=== PATIENT | male | born 1945 | race Caucasian/White ===

== ENCOUNTER 2018-12-20 09:08 | Emergency (ER) | payer MEDICARE, OTHER ==
[2018-12-20] MEDS ORDERED: Tranexamic Acid 1,000 MG/10 ML SDV ONE ×2 (09:17→09:21)
--- NOTE | 2018-12-20 09:24 | ED ---
Skin Complaint - HPI Summary HPI Summary: Patient is a 73 y/o male who presents to the ED c/o bleeding. He had a pacemaker placed in his left chest at [place] 1 week ago. Patient was here 4 days ago for bleeding from the surgical site s/p fall. He was found to have a hematoma in his surgical site. As per , it has been seeping intermittently for the past 4 days. At 8:00 this morning the bleeding became profuse. Patient is on Xarelto. PMHx AFib, CAD, HTN, and HLD. - History of Current Complaint Stated Complaint: BLEEDING FROM WOUND FROM SURGERY PER PT Hx Obtained From: Patient, Family/Research Chef - Onset/Duration: Started Days Ago - 4, Worse Since Timing: Intermittent Current Severity: None Pain Intensity: 0 Pain Scale Used: 0-10 Numeric Skin Location: Chest - left Aggravating Symptom(s): Nothing Alleviating Symptom(s): Nothing Related History: Other: - pacemaker placed 1 week ago - Allergy/Home Medications Allergies/Adverse Reactions: Allergies Allergy/AdvReac Type Severity Reaction Status Date / Time ferrous sulfate Allergy Hives Verified 12/16/18 18:02 PMH/Surg Hx/FS Hx/Imm Hx Endocrine/Hematology History: Denies: Hx Diabetes, Hx Anemia Cardiovascular History: Reports: Hx Atrial Fibrillation, Hx Coronary Artery Disease - CHOLESTEROL CONTROL WITH SIMVASTATIN, Hx Hypertension - CONTROL WITH MEDS, Hx Pacemaker/ICD, Hx Valvular Heart Disease - AORTIC VALVE REPLACED, Other Cardiovascular Problems/Disorders - CHOLESTEROL CONTROL WITH MED Respiratory History: Reports: Hx Sleep Apnea - DOES NOT USE CPAP Denies: Other Respiratory Problems/Disorders GI History: Denies: Hx Jaundice, Other GI Disorders History: Reports: Other Problems/Disorders - PROSTATECTOMY Musculoskeletal History: Reports: Hx Arthritis - GENERALIZED MOSTLY KNEES AND FEET, Hx Back Problems, Other Musculoskeletal History - LOW BACK PAIN Sensory History: Reports: Hx Contacts or Glasses - READING GLASSES, Hx Hearing Aid - BILATERAL, Hx Hearing Problem Opthamlomology History: Reports: Hx Contacts or Glasses - READING GLASSES Neurological History: Reports: Other Neuro Impairments/Disorders - pain clinic pt Psychiatric History: Reports: Hx Anxiety - CONTROL WITH MEDS, Hx Depression Denies: Hx Panic Disorder - Cancer History Cancer Type, Location and Year: Prostate 2004. hodgkins disease Hx Chemotherapy: Yes - IN THE PAST AND RADIATION Hx Radiation Therapy: Yes - [facility] - Surgical History Surgery Procedure, Year, and Place: 1994 AORTIC VALVE REPLACEMENT, [facility]. 2000 [place]IL[place] [facility] [place]IG[place]STR[facility] [place]PAIR, [facility]. 2004 ROBOTIC RADICAL PROSTATECTOMY, [facility]. 2010 OPEN RIGHT INGUINAL HERNIA [place]PAIR, [facility] [place]. 2014 LUMBAR LAMINECTOMY, [facility] [place]. 05/2016 RIGHT [facility] pacemaker 11/2018 Hx Anesthesia Reactions: No Infectious Disease History: No Infectious Disease History: Denies: Traveled Outside the [place] in Last 30 Days - Family History Known Family History: Negative: Diabetes - Social History Alcohol Use: Daily Alcohol Amount: couple of drinks per day Hx Substance Use: No Substance Use Type: Reports: None Hx Tobacco Use: Yes Smoking Status (MU): Former Smoker Type: Cigarettes Have You Smoked in the Last Year: No Review of Systems Negative: Fever Positive: Other - bleeding from surgical site left chest All Other Systems Reviewed And Are Negative: Yes Physical Exam - Summary Physical Exam Summary: Appearance: Well appearing, no pain distress Skin: warm, dry, reflects adequate perfusion, active bleeding from stapled pacemaker surgical site in left chest Head/face: normal Eyes: EOMI, TORREY ENT: mucous membranes moist Neck: supple, non-tender Respiratory: CTA, breath sounds present Cardiovascular: RRR, pulses symmetrical Abdomen: non-tender, soft Bowel Sounds: present Musculoskeletal: normal, strength/ROM intact Neuro: normal, sensory motor intact, A&Ox3 Triage Information Reviewed: Yes Vital Signs On Initial Exam: Initial Vitals Temp Pulse Resp BP Pulse Ox 98.4 F 79 16 172/98 100 12/20/18 09:11 12/20/18 09:11 12/20/18 09:11 12/20/18 09:11 12/20/18 09:11 Vital Signs Reviewed: Yes Procedures - Procedure Summary Procedure Summary: Bleeding management: Patient with significant amount of bleeding from the pacemaker pocket in the left chest. There is a large clot underneath the dressing above the skin. This was removed. Another large amount of clot was protruding from an opening or dehiscence in the surgical site. This was squeezed out and streaming red blood persisted from the surgical wound. 500 mg of TXA was injected locally into the pocket which seemed to slow the blood somewhat. Patient received 1 g IV TXA followed by 1 g drip over an hour. Pressure was held for quite some time and a pressure dressing was applied. The bleeding slowed but did not stop. He tolerated this well without complication. Complication. Diagnostics - Vital Signs Vital Signs Temp Pulse Resp BP Pulse Ox 12/20/18 09:11 98.4 F 79 16 172/98 100 - Laboratory Result Diagrams: 12/20/18 09:25 12/20/18 09:25 Lab Statement: Any lab studies that have been ordered have been reviewed, and results considered in the medical decision making process. - EKG 9:42 Cardiac Rate: Other Rate - Paced rhythm - 74 bpm EKG Rhythm: Sinus Rhythm ST Segment: Non-Specific Summary of EKG Findings: Nl axis Course/Dx - Course Course Of Treatment: Nurse's notes reviewed. Patient on oral anticoagulant without reversal agent presents with active bleeding from pacemaker pocket surgical site. Local/topical TXA and IV TXA was used to try to control the bleeding as well as direct pressure and pressure dressing. This has slowed the bleeding but not stopped it. We're able to speak to the cardiothoracic surgeon at [place] who will see him in the ER there for likely surgical management. Patient's hemoglobin and blood pressure stable. We have decided against for factor PCC at this time. He'll be transferred emergently direct to the ER to accepting physician Dr. Burton. - Differential Diagnoses - Skin Complaint Differential Diagnoses: Other - Adverse effect of anticoagulant, venous bleeding from great vessel, arterial bleeding from pocket - Diagnoses Provider Diagnoses: Adverse effect of anticoagulant, Post-operative hemorrhage, Acute post- hemorrhagic anemia - Physician Notifications Discussed Care Of Patient With: Cheyenne Nowak Time Discussed With Above Provider: 09:16 Instructed by Provider To: Other - Dr. Nowak will come see the patient in the ED. At 9:28 she arrived to the ED and she is arranging for his transfer to [place]. At 10:[address] Pinto at [place] who accepts the patient for admission, however the patient must go to their ER first. Dr. Burton from the ER accepts patient. - Critical Care Time Critical Care Time: 30-74 min - Critical care time is exclusive of separately billable procedures Discharge - Sign-Out/Discharge Documenting (check all that apply): Patient Departure - Transfer Patient Received Moderate/Deep Sedation with Procedure: No - Discharge Plan Condition: Fair Disposition: TRANS HIGHER LVL OF CARE FAC Referrals: Yung Reynolds MD [Primary Care Provider] - - Billing Disposition and Condition Condition: FAIR Disposition: Trans Higher Lvl of Care Fac - Attestation Statements Document Initiated by Izabella: Yes Documenting Scribe: Emma Lundberg Provider For Whom Izabella is Documenting (Include Credential): Musa Lugo MD Scribe Attestation: Emma Hernandez, scribed for Musa Luog MD on 12/20/18 at 1027. Scribe Documentation Reviewed: Yes Provider Attestation: The documentation as recorded by the Emma cuadra accurately reflects the service I personally performed and the decisions made by , Musa Lugo MD Status of Scribstephan Document: Viewed
[2018-12-20] MEDS ORDERED: Tranexamic Acid 1,000 MG/10 ML SDV IV ONE (09:30)
[2018-12-20] MEDS ORDERED: Tranexamic Acid 1,000 MG/10 ML SDV TOPICAL ONE (09:30)
[2018-12-20] MEDS ORDERED: Tranexamic Acid 1,000 MG/10 ML 1,000 MG in NS 0.9% 50 ML* 50 ML IV ONE (09:47)
[2018-12-20 09:59] LABS: ABS Basophils 0 10^3/ul (0-0.2); ABS Eosinophils 0.5 10^3/ul (0-0.6); ABS Lymphocytes 0.9 10^3/ul (1.0-4.8); ABS Monocytes 0.9 10^3/ul (0-0.8); ABS Neutrophils 5.6 10^3/ul (1.5-7.7); ABS Nucleated RBC 0 10^3/ul; Eosinophil % 6.6 %; Hematocrit 34 % (42-52); Hemoglobin 11.4 g/dl (14.0-18.0); Lymphocyte % 11.3 %; Mean Corpuscular HGB Conc 34 g/dl (31-36); Mean Corpuscular Hemoglobin 32 pg (27-31); Mean Corpuscular Volume 93 fL (80-94); Mean Platelet Volume 8.9 fL (7.4-10.4); Nucleated Red Blood Cells % 0; Platelet Count 163 10^3/ul (150-450); Red Cell Distribution Width 13 % (10.5-15)
[2018-12-20] MEDS ORDERED: ceFAZolin 1 GM ADVAN(*) 1 GM in NS 0.9% 50 ML* 50 ML IVPB ONE (10:00)
[2018-12-20 10:19] LABS: BUN/Creatinine Ratio 24.3 (8-20); Calcium 9.2 mg/dL (8.6-10.3); EGFR African American 62.5 (>60); EGFR Non-African American 51.7 (>60); Potassium 3.9 mmol/L (3.5-5.0)
[2018-12-20 10:21] VITALS: BP 156/79
--- NOTE | 2018-12-20 11:02 | CONS ---
CC: Dr. Yung Reynolds; Dr. Adi Bustillo CARDIOLOGY CONSULTATION DATE OF CONSULTATION: 12/20/2018. REASON FOR CONSULTATION: Bleeding from pacer site. HISTORY OF PRESENT ILLNESS: Mr. Israel is a 73-year-old gentleman who is present with his . They presented to the emergency department because of bleeding at the incision site of a pacemaker. The patient tells me on Tuesday he underwent pulmonary vein isolation (A-fib ablation) and then underwent the pacemaker lead revision and generator change. His Xarelto was held prior to the procedure and resumed on , the day he was discharged. They state he had some mild bleeding on Tuesday, but it has progressed and today was brisk, so they presented back to the ED. PAST MEDICAL HISTORY: 1. Paroxysmal atrial fibrillation. 2. Pacemaker implantation. 3. Hypertension. 4. Anxiety. 5. Thyroid nodule (Dr. Wills). 6. Low back pain (Dr. Brown). 7. Gout. 8. Prostate cancer. 9. Aortic valve replacement 1995 (probable bicuspid aortic valve, AVR in [facility], cadaveric valve). 10. Sleep apnea. PAST SURGICAL HISTORY: 1. Aortic valve replacement 1995. 2. Robotic prostatectomy 2004. 3. Inguinal hernia repair. 4. Palatoplasty for sleep apnea. MEDICATIONS: Outpatient medications were uncertain, but included: 1. Xarelto 20 mg a day. 2. Simvastatin 20 mg a day. 3. Paxil 10 mg a day. 4. Lisinopril 10 mg a day. 5. Tylenol prn. 6. Protonix 40 mg a day. 7. Lasix prn. Inpatient medications the patient has received: 1. Normal saline. 2. Kefzol 1 gm. 3. Tranexamic Acid 1 gm infusion and topical 500 mg. 4. TNX 10 ml twice. ALLERGIES: ALLERGIC OR INTOLERANT TO IRON. FAMILY HISTORY: Significant for his mother having thyroid disease. SOCIAL HISTORY: Distant smoker, two glasses of wine a day, is a wildlife research marketing operations manager for the [employer]. REVIEW OF SYSTEMS: Negative for any fevers, chills, sweats. No recent activity that the patient or his could identify that would have lead to initiate the bleeding and no activity this morning. The patient feels a little bit tired, he says as if he has lost some blood, and as above, he has had a pumping bleed from the incision since Tuesday. Home blood pressures have been 140s systolic per . PHYSICAL EXAM: General appearance: Fit-appearing, older gentleman, lying on a gurney, appearing comfortable. Dried blood covering his chest on the left side. Vital Signs: The patient is 5'10", weighs 185 pounds with a BMI of 26.5. Vitals on arrival to the emergency room showed blood pressure of 172/98, pulse is 79, respiratory rate is 16, oxygen saturation is 100 percent. He is afebrile. Telemetry confirms normal sinus rhythm. Current blood pressure is 138 /70. Psychologic: Pleasant and cooperative. Neurologic: Awake, alert, and oriented to person, place, and time. Grossly normal sensory motor function of the upper and lower extremities based on examination in the bed. Skin: Warm and dry. Incision in the left subclavian fossa examined personally. There is a prominent hematoma, and no evidence of an infection, but he does have a brisk pumping bleeding with bright blood from the medial portion of the incision. The ER has been holding direct pressure for over half an hour and it continued to bleed briskly. Several soaked ABD's and packs of 4x4's at bedside. Neck: Without appreciably increased JVP. Lungs: Breath sounds clear laterally and anteriorly. Coronary: S1, S2, regular. Abdomen: Flat, active bowel sounds and soft. Lower extremities: Warm and free of edema. DIAGNOSTIC STUDIES/LAB DATA: No labs available. No imaging studies done. I do not have pacemaker reports from [place] to review. IN SUMMARY: Mr. Israel is a 73-year-old gentleman with a history of paroxysmal A- fib with a pacemaker that required lead revision and he is not one week status post lead revision, generator change, and pulmonary vein isolation (A-fib ablation) placed back on Xarelto and then developed bleeding on Tuesday. Exam here suggests either an arterial bleed in the incision that is refractory to direct pressure in the setting of Xarelto use or possibly bleeding from the superior vena cava (I doubt the latter due to the color of the blood and pumping). There is additionally a hematoma. The incision is not optimally opposed in the region of the bleeding and this additionally poses an infection risk and material used in the ED for direct pressure included ABD's and 4 x 4's that were sterile and applied with clean technique, but it was not completely sterile. In addition to the reversing agents and direct pressure provided in the emergency room, I have recommended the patient undergo transfer back to the implanting physician and I personally discussed this with Dr. Bustillo who has agreed to accept the patient. Please note that I did not have updated medical records for review and updated medication list may be in error, and I do not have full details of his recent implant and procedures. [id number]/[facility] #: [id number] [facility]
== END 2018-12-20 11:00 | disposition short-term general hospital (02) ==
LOC: ED 09:08
DX: T45.515A Adverse effect of anticoagulants, initial encounter (principal); I97.618 Postprocedural hemorrhage of a circulatory system organ or structure following other circulatory system procedure; D62 Acute posthemorrhagic anemia; Y92.9 Unspecified place or not applicable; I25.10 Atherosclerotic heart disease of native coronary artery without angina pectoris; I10 Essential (primary) hypertension; I48.91 Unspecified atrial fibrillation; Z79.01 Long term (current) use of anticoagulants; E78.5 Hyperlipidemia, unspecified; F41.9 Anxiety disorder, unspecified; Z95.2 Presence of prosthetic heart valve; Z95.810 Presence of automatic (implantable) cardiac defibrillator; Z96.651 Presence of right artificial knee joint; Z85.46 Personal history of malignant neoplasm of prostate; Z88.8 Allergy status to other drugs, medicaments and biological substances; Z87.891 Personal history of nicotine dependence
CPT/HCPCS: 36415; 80048; 85025; 93005; 96365; 99283; J0690

== ENCOUNTER 2019-08-22 09:02 | Inpatient (IN) | payer MEDICARE, OTHER ==
--- OUTSIDE RECORDS SUMMARY | 2019-08-22 09:12 | XMS REPORT | Summary of Care ---
:1945 Author Organization [facility] Address [address] [facility] [place] [address] Care Team Providers Name Role Phone Yung Reynolds MD Primary Care Provider Reason for Referral MRI/CAT/PET Scan (Routine) Status Reason Specialty Diagnoses / Procedures Referred By Contact Referred To Contact Closed Diagnoses T-cell lymphoma (HCC) Dionte Camejo MD Robert Packer Procedures PET CT SKULL TO MID THIGH INITIAL TREATMENT 1 [facility] [place] [address] [facility] [place] [address] Phone: [phone] Reason for Visit MRI/CAT/PET Scan (Routine) Status Reason Specialty Diagnoses / Procedures Referred By Contact Referred To Contact Closed Diagnoses T-cell lymphoma (HCC) Dionte Camejo MD Robert Packer Procedures PET CT SKULL TO MID THIGH INITIAL TREATMENT 1 [facility] [place] [address] [facility] [place] [address] Phone: [phone] Encounter Details Date Type Department Care Team Description 07/23/2019 Hospital Encounter [facility] PET CT Outpatient 1 [facility] [place] [address] Allergies No Known Allergiesdocumented as of this encounter (statuses as of 07/25/2019) Medications Medication Sig Dispensed Refills Start Date End Date Status paroxetine (PAXIL) 10 Take 10 mg by 0 Active MG Oral Tab mouth EVERY BEDTIME. simvastatin (ZOCOR) 10 Take 10 mg by 0 Active MG Oral Tab mouth EVERY BEDTIME. lisinopril (PRINIVIL, Take 1 Tab by 60 Tab 11 10/20/2018 Active ZESTRIL) 10 MG Oral Tab mouth TWICE DAILY. Additional information Patient taking differently: 5 mg Oral DAILY, Reported on 07/04/2019 8:39 AM rivaroxaban (XARELTO) 20 MG Take 1 Tab by mouth 90 Tab 3 03/16/2019 Active Oral Tab DAILY. Do not resume until advised furosemide (LASIX) 40 MG Oral Take 1 Tab by mouth 30 Tab 11 03/28/2019 Active Tab DAILY NEEDED (bloating, leg swelling). acetaminophen (TYLENOL) 500 MG Take 2 Tabs by mouth 60 Tab 0 04/11/2019 Active Oral Tab EVERY EIGHT HOURS. documented as of this encounter (statuses as of 07/25/2019) Active Problems Problem Noted Date Cervical lymphadenopathy 06/22/2019 Overview: Added automatically from request for surgery [id number] H/O total hip arthroplasty, right 05/04/2019 Interstitial pulmonary disease 04/18/2019 Pain in joint involving right pelvic region and thigh 03/15/2019 Primary osteoarthritis of right hip 03/15/2019 Nonhealing surgical wound, subsequent encounter 01/10/2019 Pacemaker pocket hematoma, subsequent encounter 12/20/2018 Pacemaker lead malfunction 07/28/2018 SOB (shortness of breath) 07/07/2018 Hemoptysis 07/06/2018 Cough 04/13/2018 Pleurisy 04/13/2018 Pacemaker-dependent due to quileute cardiac rhythm insufficient to support 04/13 life Atrial fibrillation, persistent 03/10/2018 Cardiac pacemaker in situ 03/07/2018 Paroxysmal atrial fibrillation 03/07/2018 Sinus node dysfunction 01/18/2018 Atrial flutter 01/13/2018 Essential hypertension 01/13/2018 ASHD (arteriosclerotic heart disease) 01/13/2018 S/P aortic valve replacement 01/13/2018 Hx of CABG 01/13/2018 Left knee pain 09/17/2016 Primary osteoarthritis of right knee 05/14/2016 documented as of this encounter (statuses as of 07/25/2019) Immunizations Name Administration Dates Next Due Depo Medrol (40mg) 07/30/2016 Depo Medrol (80mg) 07/23/2016 documented as of this encounter Social History Tobacco Use Types Packs/Day Years Used Date Former Smoker Cigarettes Smokeless Tobacco: Never Used Alcohol Use Drinks/Week oz/Week Comments Yes 7 Standard drinks or equivalent 7.0 1-2 drinks daily, varies Sex Assigned at Date Recorded Not on file Job Start Date Occupation Industry Not on file Not on file Not on file Travel History Travel Start Travel End No recent travel history available. documented as of this encounter Last Filed Vital Signs Not on filedocumented in this encounter Plan of Treatment Date Type Specialty Care Team Description 07/26/2019 Office Visit Hematology and Oncology Jase Johnson MD [address] [address] 08/10/2019 [facility] 09/18/2019 Orders Only Cardiology 09/18/2019 Office Visit Cardiology Giselle Roland CRNP [address] [place] [address] [phone] 12/07/2019 [facility] 04/04/2020 [facility] Name Type Priority Associated Diagnoses Date/Time PET CT SKULL TO MID Imaging Routine T-cell lymphoma (HCC) 07/23/2019 4:21 PM EDT THIGH INITIAL TREATMENT Name Type Priority Associated Diagnoses Order Schedule PET CT SKULL TO MID Imaging Routine T-cell lymphoma (HCC) 1 Occurrences starting THIGH INITIAL 07/23/2019 until TREATMENT 07/23/2019 Health Maintenance Due Date Last Done Comments MEDICARE ANNUAL WELLNESS VISIT 1945 DEPRESSION SCREENING 1959 HIV SCREENING 1962 LIPID DISORDER SCREENING 1965 COLONOSCOPY SCREENING 1997 ZOSTER IMMUNIZATION SERIES (1 of 1997 2) AAA SCREENING/SURVEILLANCE 01/02/2012 FALL RISK ASSESSMENT 01/02/2012 PNEUMOCOCCAL 65+YRS (1 of 2 - 01/02/2012 PCV13) INFLUENZA VACCINE (#1) 2019 HEPATITIS C SCREENING Completed 01/16/2018 HPV IMMUNIZATION SERIES Aged Out No longer eligible based on patient's age to complete this topic MENINGOCOCCAL VACCINE IMM Aged Out No longer eligible based on patient's age to complete this topic documented as of this encounter Implants Implanted Type Area Bull Bucker Device Shelf Model / Identifier Expiration Serial / Lot Date Smart Set Bone Cement W/ Gentimy - [id number] Right: DEPUY [id number] / Implanted: Qty: 1 on 06/07/2016 by Cooper Galvez MD at [facility] Knee / [id number] Smart Set Cement - [id number] Right: DEPUY [id number] / Implanted: Qty: 1 on 06/07/2016 by Cooper Galvez MD at [facility] Knee / [id number] Persona Tibial Stem 5 Deg Sz H R - [id number] Right: HOLLIE MCDONNELL 42- [id number] / Implanted: Qty: 1 on 06/07/2016 by Cooper Galvez MD at [facility] Knee ASSOC / [id number] Persona Femur Ps Std Sz11 R - [id number] Right: HOLLIE MCDONNELL [id number] / Implanted: Qty: 1 on 06/07/2016 by Cooper Galvez MD at [facility] Knee ASSOC / [id number] Art Surface Ps 10mm R 10-12gh - [id number] Right: HOLLIE MCDONNELL 2023 [id number] / Implanted: Qty: 1 on 06/07/2016 by Cooper Galvez MD at [facility] Knee ASSOC / [id number] Assurity Mri [id number] Generator - [id number] Left: [employer]NA [id number] / Implanted: Qty: 1 on 01/13/2018 by Adi Bustillo MD at [facility] Chest [employer] [id number] / Lead, Tendril Mri [id number] - [id number] Left: ST. GEOVANNA [id number] / Implanted: Qty: 1 on 01/13/2018 by Adi Bustillo MD at [facility] Chest [employer] [id number] / Select Secure Lead 3830-69cm - [id number] Left: [employer] 3830- 69CM / Implanted: Qty: 1 on 01/13/2018 by Adi Bustillo MD at [facility] Chest / Optisense Lead - [id number] ST[employer] GEOV[place]NA / Implanted: Qty: 1 on 06/30/2018 by Adi Bustillo MD at [facility] MEDICAL, INC[employer] [id number] / 3830-59 Cm [employer] / Implanted: Qty: 1 on 12/13/2018 by Adi Bustillo MD at [facility] [id number] / Taperloc Complete Fem Stem - So Sz 15 - [id number] Right: [employer]LLIE [employer] 10/16/2027 [id number] / Implanted: Qty: 1 on 04/09/2019 by Cooper Galvez MD at [facility] Hip / [id number] Regenerex/Ringloc Ltd Hole Cup Size 58 - [id number] Right: [employer]IE [employer] 04/29/2026 [id number] / Implanted: Qty: 1 on 04/09/2019 by Cooper Galvez MD at [facility] Hip / [id number] Dual Mobility Acetabular Liner 46 G - [id number] Right: HOLLIE SATHYA 02/09/2029 [id number] / Implanted: Qty: 1 on 04/09/2019 by Cooper Galvez MD at [facility] Hip ASSOC / [id number] Biolox Ceramic Head Size 28 - [id number] Right: [employer]IE [employer] 2028 [id number] / Implanted: Qty: 1 on 04/09/2019 by Cooper Galvez MD at [facility] Hip / [id number] Ceramic Option Taper Sleeve Size Std - [id number] Right: [employer] 11/18/2027 [id number] / Implanted: Qty: 1 on 04/09/2019 by Cooper Galvez MD at [facility] Hip / [id number] Active Articulation Bearing 46mm - [id number] Right: HOLLIE SATHYA 03/05/2024 [id number] / Implanted: Qty: 1 on 04/09/2019 by Cooper Galvez MD at [facility] Hip ASSOC / [id number] documented as of this encounter Results Not on filedocumented in this encounter Visit Diagnoses Diagnosis T-cell lymphoma (HCC) Mycosis fungoides, unspecified site, extranodal and solid organ sites documented in this encounter Insurance Payer Benefit Plan / Subscriber ID Effective Dates Phone Address Type Group MEDICARE MEDICARE PART A & xxxxxxxxxxx 2011-Present Medicare B [facility] xxxxxxxx 2016-Present [employer] Guarantor Name Account Type Relation to Date of Phone Billing Address Patient Tom Israel Personal/Family 1945 [address] (Home) [facility] [phone] [place], [place] ([place]) [id number] documented as of this encounter Advance Directives Code Status Date Activated Date Inactivated Comments Full Code 04/09/2019 2:14 PM 07/09/2019 6:10 AM Does the patient have decision making capacity? Yes Order was discussed with: Patient I discussed all options and patient/surrogate requested and agreed to: Full Code Full Code 12/20/2018 12:42 PM 12/22/2018 1:40 PM Does the patient have decision making capacity? Yes Order was discussed with: Patient I discussed all options and patient/surrogate requested and agreed to: Full Code Full Code 07/08/2018 11:15 AM 07/11/2018 4:06 PM Does patient have decision making capacity? yes Order discussed with: Patient I discussed all options and patient/surrogate requested and agreed to: Full Code
--- OUTSIDE RECORDS SUMMARY | 2019-08-22 09:12 | XMS REPORT | Summary of Care ---
:1945 Author Organization [facility] Address [address] [facility] [place] [address] Care Team Providers Name Role Phone Yung Reynolds MD Primary Care Provider Reason for Visit Auth/Cert Status Reason Specialty Diagnoses / Procedures Referred By Contact Referred To Contact Encounter Details Date Type Department Care Team Description 07/09/2019 Hospital Encounter [facility] Dionte Camejo MD Short Procedure 1 [facility] [address] [facility] [place] [address] [place] [address] [phone] Allergies No Known Allergiesdocumented as of this encounter (statuses as of 07/10/2019) Medications Medication Sig Dispensed Refills Start Date [...] Reported on 07/04/2019 8:39 AM rivaroxaban (XARELTO) Take 1 Tab by 90 Tab 3 03/16/2019 Active 20 MG Oral Tab mouth DAILY. Do not resume until advised furosemide (LASIX) 40 Take 1 Tab by 30 Tab 11 03/28/2019 Active MG Oral Tab mouth DAILY NEEDED (bloating, leg swelling). acetaminophen Take 2 Tabs by 60 Tab 0 04/11/2019 Active (TYLENOL) 500 MG Oral mouth EVERY Tab EIGHT HOURS. ferrous gluconate 324 Take 324 mg by 30 Tab 0 04/12/2019 09/23/20 Discontinued (38 Fe) MG Oral Tab mouth DAILY. 19 (Patient stopped the medication) gabapentin Take 1 Cap by 5 Cap 0 04/11/2019 07/04/20 Discontinued (NEURONTIN) 300 MG mouth EVERY 19 Oral Cap BEDTIME. documented as of this encounter (statuses as of 07/10/2019) Active Problems Problem Noted Date Cervical lymphadenopathy 06/22/2019 Overview: Added automatically from request for surgery [id number] H/O total hip arthroplasty, right 05/04/2019 Interstitial pulmonary disease 04/18/2019 Pain in joint involving right pelvic region and thigh 03/15/2019 Primary osteoarthritis of right hip 03/15/2019 Nonhealing surgical wound, subsequent encounter 01/10/2019 Pacemaker pocket hematoma, subsequent encounter 12/20/2018 Pacemaker lead malfunction 07/28/2018 SOB (shortness of breath) 07/07/2018 Hemoptysis 07/06/2018 Cough 04/13/2018 Pleurisy 04/13/2018 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 04/13 life Atrial fibrillation, persistent 03/10/2018 Cardiac pacemaker in situ 03/07/2018 Paroxysmal atrial fibrillation 03/07/2018 Sinus node dysfunction 01/18/2018 Atrial flutter 01/13/2018 Essential hypertension 01/13/2018 ASHD (arteriosclerotic heart disease) 01/13/2018 S/P aortic valve replacement 01/13/2018 Hx of CABG 01/13/2018 Left knee pain 09/17/2016 Primary osteoarthritis of right knee 05/14/2016 documented as of this encounter (statuses as of 07/10/2019) Immunizations Name Administration Dates Next Due Depo [...] of this encounter Last Filed Vital Signs Vital Sign Reading Time Taken Comments Blood Pressure 121/55 07/09/2019 9:40 AM EDT Pulse 69 07/09/2019 9:40 AM EDT Temperature 36.4 07/09/2019 9:40 AM EDT C (97.6 F) Respiratory Rate 19 07/09/2019 9:40 AM EDT Oxygen Saturation 93% 07/09/2019 9:40 AM EDT Inhaled Oxygen Concentration - - Weight 83.5 kg (184 lb) 07/09/2019 6:54 AM EDT Height 177.8 cm (5' 10") 07/09/2019 6:54 AM EDT Body Mass Index 26.4 07/09/2019 6:54 AM EDT documented in this encounter Discharge Summaries Geena Cuevas MD - 07/09/2019 8:58 AM EDTGUTHRIE SP/OP DISCHARGE NOTE [address] [address] PATIENT: Tom Israel SURGEON: Primary: Dionte Camejo MD Resident - Assisting: Geena Cuevas MD ASSISTING: : 1945 DATE OF SURGERY: 07/09/2019 Procedure:Right Cervical Node BiopsY (Right ) Principle Diagnosis: Cervical lymphadenopathy Associated Condition(s): Same as pre-op, unless otherwise indicated Mental Status: Same as pre-op, unless otherwise indicated. Condition: Stable, unless otherwise indicated Disposition of Care: Discharge to home. Appointment with/ or Follow-up with Danika Ugalde in General Surgery clinic in 1 week. No orders of the defined types were placed in this encounter. Other Comments:none Author: Geena Cuevas MD 07/09/2019 documented in this encounter Discharge Instructions InstructionsGeena Cuevas MD - 07/09/2019Provider's Instructions Reason for Admission or Diagnosis:Cervical lymphadenopathy, Lymphadenopathy Activity/Restrictions: Activity as tolerated. Exercise and walk daily. Take tylenol over the counter as needed for pain (do not exceed 4000 mg acetaminophen in total per day). Skin/Wound Care: Keep incision clean and dry. Observe for redness, swelling, or drainage. Remove the big bandage the day after tomorrow. Please do not remove the white strips. They should stay on your incision and will fall off on their own in 2 weeks. It is okay to begin taking normal showers starting the day after discharge. Don 't get the dressing wet. Once you remove the big bandage, you can let soap and water rinse over wounds and dry carefully.No scrubbing at the wounds. No soaking baths or swimming for 2 weeks after surgery. Use ice packs and heat packs as needed for additional pain relief. Sutures are absorbable. We will remove the end of your suture at follow up visit. Discharge Diet: Normal diet that you were on prior to hospitalization. Please take stool softener while you are on narcotic pain medication since it can cause constipation. Special Instructions: Follow up with Dr. Camejo in General Surgery Clinic in 1 week. Do not resume your Xarelto (rivaroxaban) until tomorrow. Can take it tomorrow. Take tylenol over the counter as needed for pain (do not exceed 4000 mg acetaminophen in total per day) Please monitor for any fevers> 100.5; redness, swelling or drainage from the wounds; inability to tolerate fluids by mouth and call clinic immediately if these symptoms occur. Please call the clinic if you have any questions or concerns before your appointment. Discharge Provider: Geena Cuevas MD Attending: Dionte Camejo MD Time: 09:05 Nurse's Instructions Problems to report to your Physician: Excessive pain or discomfort Fever > 100.5 degrees Difficulty breathing Increase or smell in wound drainage POST SEDATION INSTRUCTIONS No driving for 24 hours, or while taking narcotic pain medication Do not operate any appliances today including but not limited to kitchen stove No activities today that require balance, judgement, or coordination because these can be affected by the anesthesia and no signing of any legal documents May resume regular diet as tolerated, no alcohol tonight or while taking narcotics It is suggested to stay away from any foods that are spicy or highly greasy as they may cause an upset stomach May resume home meds unless otherwise instructed by your physician *Please Return Patient Satisfaction Survey* documented in this encounter Plan of Treatment Date Type Specialty Care Team Description 07/23/2019 Office Visit General Surgery Danika Ugalde PA-C [address] [address] [phone] 08/10/2019 [facility] 09/18/2019 Orders Only Cardiology 09/18/2019 Office Visit Cardiology Giselle Roland CRNP [address] [address] [phone] 12/07/2019 [facility] 04/04/2020 [facility] Name Type Priority Associated Diagnoses Date/Time TISSUE EXAM Lab Routine Cervical lymphadenopathy 07/09/2019 8:31 AM EDT LEUKEMIA/LYMPHOMA PANEL Lab STAT 07/09/2019 8:31 AM EDT LEUKEMIA/LYMPHOMA Lab STAT 07/09/2019 8:31 AM EVALUATION EDT Name Type Priority Associated Diagnoses Order Schedule TISSUE EXAM Lab Routine Cervical lymphadenopathy *ONE TIME for 1 Occurrences starting 07/09/2019, 1 completed LEUKEMIA/LYMPHOMA PANEL Lab STAT ONE TIME for 1 Occurrences starting 07/09/2019 until 07/09/2019 LEUKEMIA/LYMPHOMA Lab STAT Once for 1 Occurrences EVALUATION starting 07/09/2019 until 07/09/2019 Health Maintenance Due Date Last Done Comments [...] of this encounter Implants Implanted Type [place] Worker Device Shelf Model / Identifier Expiration Serial / Lot Date Smart Set Bone Cement W/ Gentimy - [id number] Right: DEPUY [id number] / Implanted: Qty: 1 on 06/07/2016 by Cooper Galvez MD at [facility] Knee / [id number] Smart Set Cement - [id number] Right: DEPUY [id number] / Implanted: Qty: 1 on 06/07/2016 by Cooper Galvez MD at [facility] Knee / [id number] Persona Tibial Stem 5 Deg Sz H R - [id number] Right: HOLLIE MCDONNELL 42- [id number] / Implanted: Qty: 1 on 06/07/2016 by Cooper Galvez MD at [facility] Knee ASSOC / [id number] Persona Femur Ps Std Sz11 R - [id number] Right: HOLLIE MCDONNELL [id number] / Implanted: Qty: 1 on 06/07/2016 by Cooper Galvez MD at [facility] Knee ASS[employer] / [id number] Art Surface Ps 10mm R 07-28gh - [id number] Right: HOLLIE MCDONNELL 2023 [id number] / Implanted: Qty: 1 on 06/07/2016 by Cooper Galvez MD at [facility] Knee [employer] / [id number] Assurity Mri [id number] Generator - [id number] Left: [place] [id number] / Implanted: Qty: 1 on 01/13/2018 by Adi Bustillo MD at [facility] [employer] [id number] / Lead, Tendril Mri [id number] - [id number] Left: [facility] [id number] / Implanted: Qty: 1 on 01/13/2018 by Adi Bustillo MD at [facility] [employer] [id number] / Select Secure Lead 3830-69cm - [id number] Left: [employer] 3830- 69CM / Implanted: Qty: 1 on 01/13/2018 by Adi Bustillo MD at [facility] Chest / Optisense Lead - [id number] [facility] / Implanted: Qty: 1 on 06/30/2018 by Adi Bustillo MD at [facility] MEDICAL[employer] [id number] / 3830-59 Cm [employer] / Implanted: Qty: 1 on 12/13/2018 by Adi Bustillo MD at [facility] [id number] / Taperloc Complete Fem Stem - So Sz 15 - [id number] Right: [employer]IE [employer] 10/16/2027 [id number] / Implanted: Qty: 1 on 04/09/2019 by Cooper Galvez MD at [facility] Hip / [id number] Regenerex/Ringloc Ltd Hole Cup Size 58 - [id number] Right: [employer] 04/29/2026 [id number] / Implanted: Qty: 1 on 04/09/2019 by Cooper Galvez MD at [facility] Hip / [id number] Dual Mobility Acetabular Liner 46 G - [id number] Right: HOLLIE SATHYA 02/09/2029 [id number] / Implanted: Qty: 1 on 04/09/2019 by Cooper Galvez MD at [facility] Hip ASSOC / [id number] Biolox Ceramic Head Size 28 - [id number] Right: [employer]LLIE [employer] 2028 [id number] / Implanted: Qty: 1 on 04/09/2019 by Cooepr Galvez MD at [facility] Hip / [id number] Ceramic Option Taper Sleeve Size Std - [id number] Right: [employer] 11/18/2027 [id number] / Implanted: Qty: 1 on 04/09/2019 by Cooper Galvez MD at [facility] Hip / [id number] Arcomxl Active Articulation Bearing 46mm - [id number] Right: HOLLIE SATHYA 03/05/2024 [id number] / Implanted: Qty: 1 on 04/09/2019 by Cooper Galvez MD at [facility] Hip ASSOC / [id number] documented as of this encounter Procedures Procedure Name Priority Date/Time Associated Diagnosis Comments SIGN PERMIT 07/09/2019 12:00 PM EDT BIOPSY LYMPH NODE Planned Trip to 07/09/2019 7:40 Cervical OR AM EDT lymphadenopathy documented in this encounter Results Not on filedocumented in this encounter Visit Diagnoses Diagnosis Cervical lymphadenopathy - Primary Enlargement of lymph nodes documented in this encounter Administered Medications Medication Order MAR Action Action Date Dose Rate Site lactated ringers IV 500 mL New Bag 07/09/2019 7:11 AM EDT 500 mL 500 mL, Intravenous, BOLUS, 1 dose, 07/09/19 at 0530, 2 Day of Surgery Pre Procedure documented in this encounter Insurance Payer Benefit Plan / Subscriber ID Effective Dates Phone Address Type Group MEDICARE MEDICARE PART A & xxxxxxxxxxx 2011-Present Medicare B [facility] xxxxxxxx 2016-Present [employer] OSIEL Guarantor Name Account Type Relation to Date of Phone Billing Address Patient Tom Israel Personal/Family 1945 [address] (Home) [facility] [phone] [place], [place] (Work) [id number] documented as of this encounter Advance Directives [...]
--- OUTSIDE RECORDS SUMMARY | 2019-08-22 09:12 | XMS REPORT | Summary of Care ---
:1945 Author Organization [facility] Address [address] [facility] [place] [address] Care Team Providers Name Role Phone Yung Reynolds MD Primary Care Provider Reason for Visit Reason Comments Chemotherapy Labs 08/14 Encounter Details Date Type Department Care Team Description 08/14/2019 Office Visit [facility] Hematology Jase Johnson, Peripheral T cell Oncology lymphoma of lymph [address] nodes of head, face, [place] [id number] [place] [id number] and neck (HCC) [phone] (Primary Dx) Allergies No Known Allergiesdocumented as of this encounter (statuses as of 08/14/2019) Medications Medication Sig Dispensed Refills Start Date [...] on 07/04/2019 8:39 AM rivaroxaban (XARELTO) 20 Take 1 Tab by mouth 90 Tab 3 03/16/2019 Active MG Oral Tab DAILY. Do not resume until advised furosemide (LASIX) 40 MG Take 1 Tab by mouth 30 Tab 11 03/28/2019 Active Oral Tab DAILY NEEDED (bloating, leg swelling). acetaminophen (TYLENOL) Take 2 Tabs by mouth 60 Tab 0 04/11/2019 Active 500 MG Oral Tab EVERY EIGHT HOURS. predniSONE (DELTASONE) 50 Take 2 Tabs by mouth 48 Tab 0 08/14/20192018 Active MG Oral TabIndications: DAILY for 24 days. Peripheral T cell lymphoma Please take 2 tabs of lymph nodes of head, daily on days 2-5 face, and neck (HCC) (Tue-Tue) ondansetron (ZOFRAN) 4 MG Take 4 mg by mouth 30 Tab 0 08/14/2019 Active Oral TabIndications: EVERY EIGHT HOURS Peripheral T cell lymphoma NEEDED (As needed of lymph nodes of head, for nausea or face, and neck (HCC) vomiting). allopurinol (ZYLOPRIM) 300 Take 1 Tab by mouth 30 Tab 6 08/14/2019 Active MG Oral TabIndications: DAILY. 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, face, and neck (HCC) documented as of this encounter (statuses as of 08/14/2019) Active Problems Problem Noted Date Cervical lymphadenopathy 06/22/2019 Overview: Added automatically from request for surgery [id number] H/O total hip arthroplasty, right 05/04/2019 Interstitial pulmonary disease 04/18/2019 Pain in joint involving right pelvic region and thigh 03/15/2019 Primary osteoarthritis of right hip 03/15/2019 Nonhealing surgical wound, subsequent encounter 01/10/2019 Pacemaker pocket hematoma, subsequent encounter 12/20/2018 Pacemaker lead malfunction 07/28/2018 SOB (shortness of breath) 07/07/2018 Hemoptysis 07/06/2018 Cough 04/13/2018 Pleurisy 04/13/2018 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 04/13 life Atrial fibrillation, persistent 03/10/2018 Cardiac pacemaker in situ 03/07/2018 Paroxysmal atrial fibrillation 03/07/2018 Sinus node dysfunction 01/18/2018 Atrial flutter 01/13/2018 Essential hypertension 01/13/2018 ASHD (arteriosclerotic heart disease) 01/13/2018 S/P aortic valve replacement 01/13/2018 Hx of CABG 01/13/2018 Left knee pain 09/17/2016 Primary osteoarthritis of right knee 05/14/2016 documented as of this encounter (statuses as of 08/14/2019) Immunizations Name Administration Dates Next Due Depo [...] Sign Reading Time Taken Comments Blood Pressure 161/94 08/14/2019 8:46 AM EDT Pulse 68 08/14/2019 8:46 AM EDT Temperature 36.6 08/14/2019 8:42 AM C (97.9 EDT F) Respiratory Rate 16 08/14/2019 8:42 AM EDT Oxygen Saturation - - Inhaled Oxygen Concentration - - Weight 84.7 kg (186 lb 12.8 oz) 08/14/2019 8:42 AM shoes off EDT Height 173.4 cm (5' 8.25") 08/14/2019 8:42 AM shoes off EDT Body Mass Index 28.2 08/14/2019 8:42 AM EDT documented in this encounter Patient Instructions Patient InstructionsJase Johnson MD - 08/14/2019 9:00 AM EDT Return appointments timing and infusion type: 3 weeks for cycle # 2 of A+CHP Provider type: Labs: CBC, CMP, LDH, Uric acid, Mg, Phos Labs to be done same days before visit Port/PICC Patient Instructions: Please take Prednisone 100 mg (2 tabs x 50 mg tab) for days 2-5 (Tue-Tue) Please take allopurinol 300 mg daily Please take Zofran 4 mg every 8 hours as needed Please don't hesitate to contact the cancer center should you have any questions or concerns! Contact info: Tuesday-Tuesday 8AM-5PM [phone] [place] [phone] [place] After hours, weekends, or holidays, call [phone] and ask for the Oncologist consultant. If you have an acute emergency call 911. documented in this encounter Progress Notes Jase Johnson MD - 08/14/2019 9:00 AM EDT PATIENT: Tom Israel : 1945 DATE OF SERVICE: 08/14/2019 REFERRING PRACTITIONER: Jase Johnson PRIMARY CARE PROVIDER: Yung Reynolds Chief Complaint Patient presents with Chemotherapy Labs 08/14 DIAGNOSIS: Peripheral T-cell lymphoma, NOS, stage II, IPI score 2 (low-intermediate risk) Remote history of Hodgkin lymphoma, early stage, status post radiation and chemotherapy almost 40 years ago HISTORY OF PRESENT ILLNESS: Tom Israel is a very pleasant 74-year-old male with newly diagnosed peripheral T-cell lymphoma who presents to medical oncology for initiation of systemic therapy. He is accompanied by his on today's visit, and his history is summarized below. Tom has a remote history of Hodgkin lymphoma, diagnosed in his mid teens, almost 40 years ago, which he states was mostly localized to his neck, and he underwent treatment initially with radiation and cobalt, followed by 6 or 7 cycles of multi-agent chemotherapy sometime in the early 1970s, which he received as part of a clinical trial. He achieved complete remission, and has remained in remission since then without any issues over the past several decades. Most recently, he noticed right posterior neck lymphadenopathy sometime around late April, associated with marked fatigue. A CT scan of the neck with contrast on 06/12/2019 demonstrated mildly prominent and asymmetric quantity of lymph nodes within the left greater than right cervical chains. He was seen by surgical oncology, and underwent an excisional biopsy on 07/09/2019, and pathology was reported as peripheral T-cell lymphoma, NOS. 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 A PET CT scan wasperformed on 07/23/2019, which demonstrated prominent cervical lymphadenopathy, with max SUV 13.7, starting from retropharyngeal region measuring 2.1 cm, with max SUV of 18.9, to supraclavicular region predominantly on the left side, with a dominant right thyroid nodule, as well as right anterior mediastinal lymph node, with max SUV of 6.6. INTERVAL HISTORY: Since his last visit, Tom underwent a bone marrow biopsy and aspiration, which did not demonstrate any evidence of involvement by lymphoma. He also underwent an echocardiogram which showed a slight decline in his ejection fraction from 65% early in December to 45% recently, although he remains clinically symptomatic. On today's visit, Tom feels generally well, denies any acute complaints. He denies any frequent drenching night sweats, or unexplained fevers. He still remains relatively active,without any significant limitations. He denies any headaches, visual changes, nausea, vomiting, chest pain, cough, hemoptysis, shortness of breath, changes in his bowel or bladder habits, bloody stools, hematuria, back pain, etc. REVIEW OF SYSTEMS: A complete review of systems is otherwise unremarkable, except for what is mentioned above. ECOG PS 0-1 PRIOR MEDICAL HISTORY Past Medical History: Diagnosis Date Acute coronary syndrome (HCC) Cancer (HCC) prostate 2005 Cancer (HCC) hodgkins age 20 Cardiac pacemaker in situ 03/07/2018 Cough 04/13/2018 Failure of pacemaker lead 07/28/2018 Fractures Hemoptysis 07/06/2018 High cholesterol Hodgkin's disease (HCC) Hypertension Osteoarthritis 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 life 04/13/2018 Paroxysmal atrial fibrillation (HCC) 03/07/2018 Pleurisy 04/13/2018 PRIOR SURGICAL HISTORY: Past Surgical History: Procedure Laterality Date ARTHROPLASTY TOTAL KNEE Right 06/07/2016 Procedure: ARTHROPLASTY TOTAL KNEE PERSONA; Surgeon: Cooper Galvez MD; Location: [facility] OR ECHO, TRANS ESOPHOGEAL N/A 01/12/2018 Procedure: ECHO, TRANS ESOPHOGEAL; Surgeon: Edwardo Vizcaino MD; Location: [facility] IMPLANT PERMANENT PACEMAKER INSERTION Left 01/13/2018 Procedure: IMPLANT PERMANENT PACEMAKER INSERTION; Surgeon: Adi Bustillo MD; Location: [facility] OTHER HERNIA REPAIR IL CABG, VEIN, SINGLE IL CARDIOVERSION ELECTIVE ARRHYTHMIA EXTERNAL N/A 03/10/2018 Procedure: CARDIOVERSION; Surgeon: Adi Bustillo MD; Location: [facility] [place] CARDIOVERSION ELECTIVE ARRHYTHMIA EXTERNAL N/A 10/19/2018 Procedure: CARDIOVERSION; Surgeon: Adi Bustillo MD; Location: [facility] IL CARDIOVERSION ELECTIVE ARRHYTHMIA EXTERNAL N/A 12/07/2018 Procedure: CARDIOVERSION; Surgeon: Adi Bustillo MD; Location: [facility] IL EPHYS EVL TRNSPTL TX ATRIAL FIB ISOLAT PULM VEIN N/A 06/28/2018 Procedure: ABLATION PULMONARY VEIN; Surgeon: Adi Bustillo MD; Location: [facility] CCL IL EPHYS EVL TRNSPTL TX ATRIAL FIB ISOLAT PULM VEIN N/A 12/12/2018 Procedure: ABLATION PULMONARY VEIN; Surgeon: Adi Bustillo MD; Location: [facility] CCL IL FEMUR/KNEE SURG UNLISTED IL MILLER W/O FACETEC FORAMOT/[facility]KC 10/18 VRT SEG, THORACIC IL RECONSTRUCT SCAPHOID CARPAL W PROSTHESIS IL TOTAL HIP ARTHROPLASTY Right 04/09/2019 Procedure: ARTHROPLASTY TOTAL HIP CONTINUM TAPER LOC RIGHT; Surgeon: Cooper Galvez MD; Location: [facility] MAIN OR PROSTATECTOMY NEC UNLISTED PROCEDURE,MUSCULOSKELE knee arthroscopy FAMILY HISTORY: History reviewed. No pertinent family history. SOCIAL HISTORY: Social History Socioeconomic History Marital status: Spouse name: Not on file Number of children: Not on file Years of education: Not on file Highest education level: Not on file Occupational History Not on file Social Needs Financial resource strain: Not on file Food insecurity: Worry: Not on file Inability: Not on file Transportation needs: Medical: Not on file Non-medical: Not on file Tobacco Use Smoking status: Former Smoker Types: Cigarettes Smokeless tobacco: Never Used Substance and Sexual Activity Alcohol use: Yes Alcohol/week: 7.0 standard drinks Types: 7 Standard drinks or equivalent per week Comment: 1-2 drinks daily, varies Drug use: No Sexual activity: Not Currently Lifestyle Physical activity: Days per week: Not on file Minutes per session: Not on file Stress: Not on file Relationships Social connections: Talks on phone: Not on file Gets together: Not on file Attends jain service: Not on file Active member of club or organization: Not on file Attends meetings of clubs or organizations: Not on file Relationship status: Not on file Intimate partner violence: Fear of current or ex partner: Not on file Emotionally abused: Not on file Physically abused: Not on file Forced sexual activity: Not on file Other Topics Concern Not on file Social History Narrative Not on file MEDICATIONS: Current Outpatient Medications Medication Sig acetaminophen (TYLENOL) 500 MG Oral Tab Take 2 Tabs by mouth EVERY EIGHT HOURS. allopurinol (ZYLOPRIM) 300 MG Oral Tab Take 1 Tab by mouth DAILY. furosemide (LASIX) 40 MG Oral Tab Take 1 Tab by mouth DAILY NEEDED ( bloating, leg swelling). lisinopril (PRINIVIL, ZESTRIL) 10 MG Oral Tab Take 1 Tab by mouth TWICE DAILY. (Patient taking differently: Take 5 mg by mouth DAILY.) ondansetron (ZOFRAN) 4 MG Oral Tab Take 4 mg by mouth EVERY EIGHT HOURS NEEDED (As needed for nausea or vomiting). paroxetine (PAXIL) 10 MG Oral Tab Take 10 mg by mouth EVERY BEDTIME. predniSONE (DELTASONE) 50 MG Oral Tab Take 2 Tabs by mouth DAILY for 24 days. Please take 2 tabs daily on days 2-5 (Tue-Tue) rivaroxaban (XARELTO) 20 MG Oral Tab Take 1 Tab by mouth DAILY. Do not resume until advised simvastatin (ZOCOR) 10 MG Oral Tab Take 10 mg by mouth EVERY BEDTIME. No current facility-administered medications for this visit. ALLERGIES: No Known Allergies VITALS: BP (!) 161/94 (BP Location: Right arm, Patient Position: Sitting) | Pulse 68 | Temp 97.9 F (36.6 C) (Temporal) | Resp 16 | Ht 5' 8.25" ( 1.734 m) Comment: shoes off | Wt 186 lb 12.8oz (84.7 kg) Comment: shoes off | BMI 28.20 kg/m Body mass index is 28.2 kg/m. Physical Exam Constitutional: General: He is not in acute distress. Appearance: He is well-developed. He is not toxic-appearing. HENT: Head: Normocephalic and atraumatic. Eyes: General: No scleral icterus. Conjunctiva/sclera: Conjunctivae normal. Pupils: Pupils are equal, round, and reactive to light. Neck: Musculoskeletal: Normal range of motion and neck supple. Thyroid: No thyromegaly. Vascular: No JVD. Trachea: No tracheal deviation. Comments: Palpable posterior cervical lymph nodes Cardiovascular: Rate and Rhythm: Normal rate and regular rhythm. Heart sounds: Normal heart sounds. No murmur. No friction rub. No gallop. Pulmonary: Effort: Pulmonary effort is normal. No respiratory distress. Breath sounds: Normal breath sounds. No wheezing or rales. Abdominal: General: Bowel sounds are normal. There is no distension. Palpations: Abdomen is soft. There is no mass. Tenderness: There is no tenderness. There is no rebound. Musculoskeletal: Normal range of motion. General: No swelling or tenderness. Right lower leg: No edema. Left lower leg: No edema. Lymphadenopathy: Cervical: Cervical adenopathy present. Skin: General: Skin is warm and dry. Findings: No erythema or rash. Neurological: General: No focal deficit present. Mental Status: He is alert and oriented to person, place, and time. Psychiatric: Mood and Affect: Mood normal. Behavior: Behavior normal. PATHOLOGY: FINAL DIAGNOSIS Bone marrow aspirate smear, clot section and core biopsy, left iliac crest: -Mildly hypercellular bone marrow showing adequate maturing granulopoiesis and megakaryopoiesis withrelative erythroid hyperplasia. -No evidence of increased blasts, myelodysplastic syndrome or marrow involvement by lymphoma. LABORATORY DATA: Lab Results Component Value Date WBC 5.52 08/14/2019 HGB 12.1 (L) 08/14/2019 HCT 36.9 (L) 08/14/2019 PLAT 118 (L) 08/14/2019 Lab Results Component Value Date NA 138 08/14/2019 K 4.6 08/14/2019 CL 107 08/14/2019 CO2 26 08/14/2019 GLUCOSE 124 (H) 08/14/2019 BUN 23 (H) 08/14/2019 CREATININE 1.0 08/14/2019 CALCIUM 8.8 08/14/2019 TP 7.0 08/14/2019 ALBUMIN 3.7 08/14/2019 AST 32 08/14/2019 ALT 21 08/14/2019 ALK 108 08/14/2019 TBILI 0.6 08/14/2019 EGFR >60 08/14/2019 IMPRESSION/PLAN: ICD-9-CM ICD-10-CM 1. 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 We reviewed his bone marrow biopsy, which does not demonstrate any evidence of involvement by lymphoma. We reviewed his most recent echocardiogram, which does show a decline in his ejection fraction from 65% sometime in December to 45-50% most recently. He remains clinically asymptomatic with no signs and symptoms of heart failure. We discussed that doxorubicin is a cardiotoxic medication, and we will plan to monitor very closely with repeat echocardiogram after 2 cycles. In addition, I have reached out to his lehr cutter to see if we can optimize his cardiac medications, while he remains in treatment. We also reviewed the recommendations from the [facility] E consult, which does agree with the proposed regimen of brentuximab plus CHP (A+CHP), with consideration of an autologous stem cell transplantpending response. The treatment plan including toxicities were reviewed in detail, all questions were answered to his and his 's satisfaction, and signed informed consent was obtained to begin treatment. #1. Labs reviewed, proceed with cycle #1 of A+CHP with G-CSF OBI on day 1 #2. Supportive care discussed, will prescribe allopurinol 300 mg daily for tumor lysis prophylaxis,ondansetron 4 mg every 8 hours as needed for nausea/ vomiting. #3. Follow-up in 3 weeks for cycle #2 of treatment Continue to follow-up with PCP as scheduled for all other chronic medical needs. A total of 40 minutes was spent during this clinic visit, of which more than 50 % was spent in reviewing history, medical records, discussing treatment plan in detail, reviewing potential toxicities, counseling, and answering pertinent questions Follow up: Schedule follow-up here in 3 week(s). Author: Jase Johnson MD 08/14/2019 09:53 documented in this encounter Plan of Treatment Date Type Specialty Care Team Description 09/04/2019 Appointment Infusion Therapy 09/04/2019 Office Visit Hematology and Oncology Iraida Allen MD [address] [place] [address] 09/04/2019 Appointment Infusion Therapy 09/18/2019 Orders Only Cardiology 09/18/2019 Office Visit Cardiology Giselle Roland CRNP 1 [place] [address] 12/07/2019 [facility] 04/04/2020 [facility] 08/12/2020 [facility] Name Type Priority Associated Diagnoses Order Schedule CBC WITH DIFFERENTIAL Lab STAT Peripheral T cell Expected: 08/14/2019 lymphoma of lymph nodes (Approximate), of head, face, and neck Expires: 08/14/2020 ([facility]) COMPREHENSIVE METABOLIC Lab STAT Peripheral T cell Expected: 08/14/2019 PANEL lymphoma of lymph nodes (Approximate), of head, face, and neck Expires: 08/14/2020 ([facility]) MAGNESIUM LEVEL Lab STAT Peripheral T cell Expected: 08/14/2019 lymphoma of lymph nodes (Approximate), of head, face, and neck Expires: 08/14/2020 ([facility]) PHOSPHORUS Lab STAT Peripheral T cell Expected: 08/14/2019 lymphoma of lymph nodes (Approximate), of head, face, and neck Expires: 08/14/2020 ([facility]) LACTATE DEHYDROGENASE Lab STAT Peripheral T cell Expected: 08/14/2019 lymphoma of lymph nodes (Approximate), of head, face, and neck Expires: 08/14/2020 ([facility]) URIC ACID Lab STAT Peripheral T cell Expected: 08/14/2019 lymphoma of lymph nodes (Approximate), of head, face, and neck Expires: 02/10/2020 ([facility]) Health Maintenance Due Date Last Done Comments MEDICARE ANNUAL WELLNESS VISIT 1945 DEPRESSION SCREENING 1959 LIPID DISORDER SCREENING 1965 COLONOSCOPY SCREENING 1997 ZOSTER IMMUNIZATION SERIES (1 1997 of 2) AAA SCREENING/SURVEILLANCE 01/02/2012 PNEUMOCOCCAL 65+YRS (1 of 2 - 01/02/2012 PCV13) INFLUENZA VACCINE (#1) 2019 FALL RISK ASSESSMENT 08/14/2020 08/14/2019, 08/14/2019 HEPATITIS C SCREENING Completed 07/26/2019, 01/16/2018 HIV SCREENING Completed 07/26/2019 HPV IMMUNIZATION SERIES Aged Out No longer eligible based on patient's age to complete this topic MENINGOCOCCAL VACCINE IMM Aged Out No longer eligible based on patient's age to complete this topic documented as of this encounter Implants Implanted Type Area Lathe Tender Device Shelf Model / Identifier Expiration Serial / Lot Date Smart Set Bone Cement W/ Gentimy - [id number] Right: DEPUY [id number] / Implanted: Qty: 1 on 06/07/2016 by Cooper Galvez MD at [facility] Knee / [id number] Smart Set Cement - [id number] Right: DEPUY [id number] / Implanted: Qty: 1 on 06/07/2016 by Cooper Galvez MD at [facility] Knee / [id number] Persona Tibial Stem 5 Deg Sz H R - [id number] Right: [employer]LLIEWILLI CHENGALL 42- [id number] / Implanted: Qty: 1 on 06/07/2016 by Cooper Galvez MD at [facility] Knee ASSOC / [id number] Persona Femur Ps Std Sz11 R - [id number] Right: [facility] [id number] / Implanted: Qty: 1 on 06/07/2016 by Cooper Galvez MD at [facility] Knee ASSOC / [id number] Art Surface Ps 10mm R 10-12gh - [id number] Right: HOLLIEWILLI CHENGALL 2023 [id number] / Implanted: Qty: 1 on 06/07/2016 by Cooper Galvez MD at [facility] Knee ASSOC / [id number] Assurity Mri [id number] Generator - [id number] Left: [facility] [employer] [id number] / Implanted: Qty: 1 on 01/13/2018 by Aid Bustillo MD at [facility] Chest [employer] [id number] / Lead, Tendril Mri [id number] - [id number] Left: [employer] [employer] [id number] / Implanted: Qty: 1 on 01/13/2018 by Adi Bustillo MD at [facility] [employer] [id number] / Select Secure Lead 3830-69cm - [id number] Left: [employer] 3830- 69CM / Implanted: Qty: 1 on 01/13/2018 by Adi Bustillo MD at [facility] Chest / Optisense Lead - [id number] [employer] [place] / Implanted: Qty: 1 on 06/30/2018 by Adi Bustillo MD at [facility] MEDICAL[employer] INC[employer] [id number] / 3830-59 Cm [employer] / Implanted: Qty: 1 on 12/13/2018 by Adi Bustillo MD at [facility] [id number] / Taperloc Complete Fem Stem - So Sz 15 - [id number] Right: [employer] 10/16/2027 [id number] / Implanted: Qty: 1 on 04/09/2019 by Cooper Galvez MD at [facility] Hip / [id number] Regenerex[employer]Ringloc Ltd Hole Cup Size 58 - [id number] Right: [employer] 04/29/2026 [id number] / Implanted: Qty: 1 on 04/09/2019 by Cooper Galvez MD at [facility] Hip / [id number] Dual Mobility Acetabular Liner 46 G - [id number] Right: HOLLIE SATHYA 02/09/2029 [id number] / Implanted: Qty: 1 on 04/09/2019 by Cooper Galvez MD at [facility] Hip ASSOC / [id number] Biolox Ceramic Head Size 28 - [id number] Right: [employer] 2028 [id number] / Implanted: Qty: 1 on 04/09/2019 by Cooper Galvez MD at [facility] Hip / [id number] Ceramic Option Taper Sleeve Size Std - [id number] Right: [employer] 11/18/2027 [id number] / Implanted: Qty: 1 on 04/09/2019 by Cooper Galvez MD at [facility] Hip / [id number] Arcomxl Active Articulation Bearing 46mm - [id number] Right: HOLLIE SATHYA 03/05/2024 [id number] / Implanted: Qty: 1 on 04/09/2019 by Cooper Galvez MD at [facility] Hip ASSOC / [id number] documented as of this encounter Results COMPREHENSIVE METABOLIC PANEL (08/14/2019 8:27 AM EDT) [facility] Sodium 138 134 - 145 mmol/L [facility] Potassium 4.6 3.5 - 5.1 mmol/L [facility] Chloride 107 98 - 107 mmol/L [facility] CO2 26 22 - 30 mmol/L [facility] Calcium 8.8 8.3 - 10.1 mg/dl [facility] Albumin 3.7 3.5 - 5.0 g/dl [facility] BUN 23 (H) 9 - 20 mg/dl [facility] Creatinine 1.0 0.8 - 1.5 mg/dl [facility] Glucose 124 (H) 70 - 99 mg/dl [facility] Total Protein 7.0 6.3 - 8.2 g/dl [facility] Total Bilirubin 0.6 0.0 - 1.1 MG/DL [facility] AST 32 17 - 59 U/L [facility] ALT 21 21 - 72 U/L [facility] Alkaline 108 40 - 150 U/L [facility] eGFR >60 See Interpretation [facility] Comment: Below ml/min/1.73ml GROUP Estimated GFR Interpretation: Sq LABORATORY Above 60ml/min/1.73m2 = Normal Renal Function 30-59 ml/min/1.73m2 = Stage 3 Chronic Kidney Disease 15-29 ml/min/1.73m2 = Stage 4 Chronic Kidney Disease Less than 15 ml/min/1.73m2 = Stage 5 Chronic Kidney Disease The GFR value is calculated using the Modification of Diet in Renal Disease ( MDRD) Study Equation which can be found at: https://www.kidney.org/content/ozne-dnazw-cgkodqci BUN/Creatinine 23 (H) 6 - 22 RATIO [facility] Anion Gap 5 3 - 11 mmol/L [facility] A/G Ratio 1.1 0.8 - 2.0 ratio [facility] Specimen Blood - Blood specimen (specimen) Performing Organization Address City/State/Zipcode Phone Number [facility] [address] [place] [address] [phone] CBC WITH DIFFERENTIAL (08/14/2019 8:27 AM EDT) WBC Count 5.52 4.23 - 9.07 K/uL [facility] RBC Count 3.93 (L) 4.30 - 5.89 M/UL [facility] Hemoglobin 12.1 (L) 13.7 - 17.5 g/dL [facility] Hematocrit 36.9 (L) 40.1 - 51.0 % [facility] MCV 93.9 (H) 79.0 - 92.2 FL [facility] MCH 30.8 25.7 - 32.2 PG [facility] MCHC 32.8 32.3 - 36.5 g/dL [facility] Platelet Count 118 (L) 163 - 337 K/uL [facility] MPV 10.8 9.4 - 12.4 FL [facility] RDW 12.6 11.6 - 14.4 % [facility] Neutrophil % 62.9 34.0 - 67.9 % [facility] Lymphocyte % 13.2 (L) 21.8 - 53.1 % [facility] Monocyte % 15.9 (H) 5.3 - 12.2 % [facility] Eosinophil % 6.5 0.8 - 7.0 % [facility] Basophil % 1.3 (H) 0.2 - 1.2 % [facility] nRBC % 0.0 0.0 - 0.2 % [facility] Neutrophil # 3.47 1.78 - 5.38 K/UL [facility] Lymphocyte # 0.73 (L) 1.32 - 3.57 K/UL [facility] Monocyte # 0.88 (H) 0.30 - 0.82 K/UL [facility] Eosinophil # 0.36 0.04 - 0.54 K/UL [facility] Basophil # 0.07 0.01 - 0.08 K/UL [facility] Immature Gran % 0.2 0.0 - 0.4 % [facility] Immature Gran # 0.01 0.00 - 0.03 K/uL [facility] NRBC # 0.00 0.00 - 0.12 K/uL [facility] Specimen Blood - Blood specimen (specimen) Performing Organization Address City/State/Zipcode Phone Number [facility] [address] [place] [address] [phone] documented in this encounter Visit Diagnoses Diagnosis 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, face, and neck (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
--- OUTSIDE RECORDS SUMMARY | 2019-08-22 09:12 | XMS REPORT | Summary of Care ---
:1945 Author Organization [facility] Address [address] [address] Care Team Providers Name Role Phone Yung [place] MD Primary Care Provider Reason for Referral Diagnostic Testing (Urgent) Status Reason Specialty Diagnoses / Referred By Referred To Contact Procedures Contact Closed Cardiology Diagnoses T-cell lymphoma (HCC) Jase Johnson [facility] Cardiovascular Procedures ECHOCARDIOGRAM TTE MD Diagnostic [address] [place] [address] [place] [address] Phone: Reason for Visit Diagnostic Testing (Urgent) Status Reason Specialty Diagnoses / Referred By Referred To Contact Procedures Contact Closed Cardiology Diagnoses T-cell lymphoma (HCC) Jase Johnson [facility] Cardiovascular Procedures ECHOCARDIOGRAM TTE Diagnostic [address] [place] [address] [place] [address] Phone: Encounter Details Date Type Department Care Team Description 07/30/2019 Hospital Encounter [facility] CARDIOVASCULAR DIAGNOSTIC Outpatient [address] [address] Allergies No Known Allergiesdocumented as of this encounter (statuses as of 08/01/2019) Medications Medication Sig Dispensed Refills Start Date [...] as of this encounter (statuses as of 08/01/2019) Active Problems Problem Noted Date Cervical lymphadenopathy 06/22/2019 Overview: Added automatically from request for surgery [id number] H/O total hip arthroplasty, right 05/04/2019 Interstitial pulmonary disease 04/18/2019 Pain in joint involving right pelvic region and thigh 03/15/2019 Primary osteoarthritis of right hip 03/15/2019 Nonhealing surgical wound, subsequent encounter 01/10/2019 Pacemaker pocket hematoma, subsequent encounter 12/20/2018 Pacemaker lead malfunction 07/28/2018 SOB (shortness of breath) 07/07/2018 Hemoptysis 07/06/2018 Cough 04/13/2018 Pleurisy 04/13/2018 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 04/13 life Atrial fibrillation, persistent 03/10/2018 Cardiac pacemaker in situ 03/07/2018 Paroxysmal atrial fibrillation 03/07/2018 Sinus node dysfunction 01/18/2018 Atrial flutter 01/13/2018 Essential hypertension 01/13/2018 ASHD (arteriosclerotic heart disease) 01/13/2018 S/P aortic valve replacement 01/13/2018 Hx of CABG 01/13/2018 Left knee pain 09/17/2016 Primary osteoarthritis of right knee 05/14/2016 documented as of this encounter (statuses as of 08/01/2019) Immunizations Name Administration Dates Next Due Depo [...] Treatment Date Type Specialty Care Team Description 08/03/2019 Hospital Encounter Acute [facility] Clarke Gonzalez MD Short Procedure [address] [address] [phone] 08/10/2019 [facility] Arrhythmia [facility] 09/18/2019 Orders Only Cardiology 09/18/2019 Office Visit Cardiology Giselle Roland CRNP [address] [address] 12/07/2019 [facility] Ar[facility]hythmia [facility] 04/04/2020 [facility] Arrhythmia [facility] Health Maintenance Due Date Last Done Comments MEDICARE ANNUAL WELLNESS VISIT 1945 DEPRESSION SCREENING 1959 LIPID DISORDER SCREENING 1965 COLONOSCOPY SCREENING 1997 ZOSTER IMMUNIZATION SERIES (1 1997 of 2) AAA SCREENING/SURVEILLANCE 01/02/2012 FALL RISK ASSESSMENT 01/02/2012 PNEUMOCOCCAL 65+YRS (1 of 2 - 01/02/2012 PCV13) INFLUENZA VACCINE (#1) 2019 HEPATITIS C SCREENING Completed 07/26/2019, 01/16/2018 HIV SCREENING Completed 07/26/2019 HPV IMMUNIZATION SERIES Aged Out No longer eligible based on patient's age to complete this topic MENINGOCOCCAL VACCINE IMM Aged Out No longer eligible based on patient's age to complete this topic documented as of this encounter Implants Implanted Type Area Biologics Specialist Device Shelf Model / Identifier Expiration Serial / Lot Date Smart Set Bone Cement W/ Gentimy - [id number] Right: DEPUY [id number] / Implanted: Qty: 1 on 06/07/2016 by Cooper Galvez MD at [facility] Knee / [id number] Smart Set Cement - [id number] Right: DEPUY [id number] / Implanted: Qty: 1 on 06/07/2016 by Cooper Galvez MD at [facility] Knee / [id number] Persona Tibial Stem 5 Deg Sz H R - [id number] Right: HOLLIE MCDONNELL [id number] / Implanted: Qty: 1 on 06/07/2016 by Cooper Galvez MD at [facility] Knee ASSOC / [id number] Persona Femur Ps Std Sz11 R - [id number] Right: HOLLIE CHENGALL [id number] / Implanted: Qty: 1 on 06/07/2016 by Cooper Galvez MD at [facility] Knee ASSOC / [id number] Art Surface Ps 10mm R 07-28 - [id number] Right: HOLLIE MCDONNELL 2023 [id number] / Implanted: Qty: 1 on 06/07/2016 by Cooper Galvez MD at [facility] Knee ASSOC / [id number] Assurity Mri [id number] Generator - [id number] Left: [facility]NA [id number] / Implanted: Qty: 1 on 01/13/2018 by Adi Bustillo MD at [facility] [employer] [id number] / Lead, Tendril Mri [id number]-35 - [id number] Left: [facility] GEOV[place]NA [id number] / Implanted: Qty: 1 on 01/13/2018 by Adi Bustillo MD at [facility] MEDICAL[employer] [id number] / Select Secure Lead 3830-69cm - [id number] Left: [employer] 3830- 69CM / Implanted: Qty: 1 on 01/13/2018 by Adi Bustillo MD at [facility] Chest / Optisense Lead - [id number] ST. GEOVANNA / Implanted: Qty: 1 on 06/30/2018 by Adi Bustillo MD at [facility] MEDICAL[employer] [id number] / 3830-59 Cm [employer] / Implanted: Qty: 1 on 12/13/2018 by Adi Bustillo MD at [facility] [id number] / Taperloc Complete Fem Stem - So Sz 15 - [id number] Right: HOLLIE [employer] 10/16/2027 [id number] / Implanted: Qty: 1 on 04/09/2019 by Cooper Galvez MD at [facility] Hip / [id number] Regenerex/Ringloc Ltd Hole Cup Size 58 - [id number] Right: HOLLIE [employer] 04/29/2026 [id number] / Implanted: Qty: 1 on 04/09/2019 by Cooper Galvez MD at [facility] Hip / [id number] Dual Mobility Acetabular Liner 46 G - [id number] Right: HOLLIE SATHYA 02/09/2029 [id number] / Implanted: Qty: 1 on 04/09/2019 by Cooper Galvez MD at [facility] Hip ASSOC / [id number] Biolox Ceramic Head Size 28 - [id number] Right: HOLLIE [employer] 2028 [id number] / Implanted: Qty: 1 on 04/09/2019 by Cooper Galvez MD at [facility] Hip / [id number] Ceramic Option Taper Sleeve Size Std - [id number] Right: HOLLIE [employer] 11/18/2027 [id number] / Implanted: Qty: 1 on 04/09/2019 by Cooper Galvez MD at [facility] Hip / [id number] Arcomxl Active Articulation Bearing 46mm - [id number] Right: HOLLIE SATHYA 03/05/2024 [id number] / Implanted: Qty: 1 on 04/09/2019 by Cooper Galvez MD at [facility] Hip ASSOC / [id number] documented as of this encounter Procedures Procedure Name Priority Date/Time Associated Diagnosis Comments ECHOCARDIOGRAM TTE GOLDY 07/30/2019 10:16 AM T-cell lymphoma Results for this EDT (HCC) procedure are in the results section. documented in this encounter Results ECHOCARDIOGRAM TTE (07/30/2019 10:16 AM EDT) ECHOCARDIOGRAM TTE ECHOCARDIOGRAPHY REPORT CARDIOLOGY DEPARTMENT Patient Name: JAKE TREVINO Status: Outpatient MR Number: [id number] Gender: Male : 1945 Location: [place] Age:74 year(s) Exam Date: 07/30/2019 10:16 AM Height: 70 inches Weight: 180 pounds Study Performed: 2D echocardiogram, M-Mode, Doppler , Color Doppler, ECHOCARDIOGRAM TTE, Echocardiogram . Ordering JOYSON Provider: JAE BLOUNT Referring YUNG [place] Provider: Seed Buyer: [facility] Inspector And Reworker Room Number Interpreting KERRY VALLECILLO MD BSA: 2 m^2 Interpreting BMI: 25.83 kg/m^2 Fellow Nurse Technical Quality: Adequate visualization Heart Rate (HR): 87bpm Blood Pressure (BP): 111/66mmHg INDICATION FOR STUDY: Pre-chemotherapy. FINAL IMPRESSION: Normal LV cavity size with mildly increased LV wall thickness. Mild LV systolic dysfunction with regional wall motion abnormalities and estimated LVEF 45-50%. Quantification of LVEF may not be accurate on this study due to limited endocardial visualization. A repeat limited study with Definity is recommended for more accurate LVEF assessment. There is hypokinesis of basal inferior and basal inferoseptal segments. LV function as assessed by average global longitudinal strain is low normal (-17.3%). Left atrium is normal in size. Moderately dilated RV with preserved RV contractility. No pericardial effusion. In comparison with report of TTE dated 12/21/2018, there is interval deterioration in LVEF. OBSERVATIONS & FINDINGS: Using 2d (3d if applicable), M-mode, Colorflow, Continuous wave doppler and Pulse wave doppler interrogation Left Ventricle Normal LV cavity size with mildly increased LV wall thickness. No evidence of LVOT obstruction. Mild LV systolic dysfunction with regional wall motion abnormalities and estimated LVEF 45-50%. Quantification of LVEF may not be accurate on this study due to limited endocardial visualization. A repeat limited study with definity is recommended for more accurate LVEF assessment. There is hypokinesis of basal inferior and basal inferoseptal segments. LV function as assessed by average global longitudinal strain is low normal (-17.3%). Left Atrium Left atrium is normal in size. Mitral Valve Mitral leaflets appear mildly thickened with preserved mobility. There is no evidence of mitral stenosis or prolapse. No significant mitral regurgitation. 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 The prosthesis is well seated, with no rocking motion, no dehiscence and no paravalvular leaks. The mean and peak gradients across the aortic valve are 5 mmHg and 9 mmHg respectively. The effective orifice area is 1.8cm2 There is no significant aortic regurgitation. Right Ventricle Moderately dilated RV with preserved RV contractility. PPM/ICD wires visualized in right atrium and right ventricle. Right Atrium The right atrium is mildly dilated. Tricuspid Valve Tricuspid valve appears normal with flexible leaflets. There is no significant tricuspid regurgitation. Estimated pulmonary arterial systolic pressure is 33 mmHg assuming RA pressure of 8 mmHg. Pulmonic Valve Pulmonic valve is not well visualized; there is no evidence of significant pulmonic stenosis or regurgitation by doppler in parasternal short axis view. Pericardium / Pleura No pericardial effusion. Miscellaneous Visualized portions of aorta are within normal limits. Interatrial septum appears intact by 2D imaging and Color Doppler interrogation. Measurements & Calculations: M-Mode / 2D Measurements Value Normal Value Normal LVIDd: 5.21 cm 3.5-5.5 LA Dimension: cm 1.9-4.0 LVIDs: 3.3 cm 3.0-4.0 LVOT: 2.1 cm 1.5-2.5 IVSd: 1.13 cm 0.7-1.1 RV Diastolic Dimension: 5.02 cm LVPWD: 1.02 cm 0.7-1.1 EF Estimated: 45 % 50-70% Doppler Measurements & Calculations: Mitral: Aortic: Area (PHT): 2.89 cm^2 LVOT VTI: 15.9 cm Peak E-Wave: 96.5 cm/s Peak Velocity: 154 cm/s Peak A-Wave: 26.7 cm/s Peak Gradient: 9.49 mmHg Peak Gradient: 3.72 mmHg P1/2t: 76 msec Area (continuity): 1.83 cm^2 Mean Velocity: 101 cm/s Mean Gradient: 5 mmHg AV VTI: 30.1 cm Deceleration Time: 261 msec E/A Ratio: 3.61 Tricuspid: Pulmonic: RVSP:33 mmHg Peak Velocity: 96.1 cm/s Peak TR Velocity:252 cm/s Peak Gradient: 3.69 mmHg TR Gradient:25.4016 mmHg MS ED Velocity: 107 cm/s TR Velocity: 252 cm/s Mean Velocity: 68.9 cm/s TR Gradient: 25.4016 mmHg Mean Gradient: 3 mmHg Estimated PASP: 33.4 mmHg Estimated RAP: 8 mmHg Estimated RVSP: 33 mmHg Left Atrium: Right Atrium: LA Dimension: 3.85 cm RA dimension:4.52 cm RA area:18.2 cm^2 LA Area: 20.3 cm^2 LA Volume/Index: 61.4 ml /31m^2 Left Ventricle: Right Ventricle: Diastolic Dimension: 5.21 cm Septum Diastolic: 1.13 cm PW Diastolic: 1.02 cm Wood dimension:5.02 cm EF Calculated: 51.22% CO: 4.79 l/min RV sys pressure:33.4 mmHg FS: 36.66 % LVOT LVOT Diameter: 2.1 cm Peak Velocity: 71.7 cm/s Systolic Dimension: 3.3 cm Peak Gradient: 2 mmHg LVOT Diameter: 2.1 cm EF Estimated: 45% Mean Velocity: 50.2 cm/s CI: 2.4 l/min*m^2 Mean Gradient: 1 mmHg LVOT VTI: 15.9 cm LV EDV/LV EDV Index: 82 ml/41 m^2 Aorta LV ESV/LV ESV Index: 40 ml/20 m^2 LVOT Diameter: 2.1 cm Pulmonary Vein: S Velocity: 33.7 cm/s D Velocity: 107 cm/s A Reversal Velocity: 27.9 cm/s A Reversal Duration: 88 msec Signature Ejection Fraction 45 % CARDIOLOGY DEPARTMENT AV AREA 1.83 cm2 CARDIOLOGY DEPARTMENT RVSP 33 mmHg CARDIOLOGY DEPARTMENT LA Volume 61.4 ml CARDIOLOGY DEPARTMENT LVEDd 5.21 cm CARDIOLOGY DEPARTMENT LVESd 3.3 cm CARDIOLOGY DEPARTMENT IVSd 1.13 cm CARDIOLOGY DEPARTMENT LVPWd 1.02 cm CARDIOLOGY DEPARTMENT ESV 40 ml CARDIOLOGY DEPARTMENT EDV 82 ml CARDIOLOGY DEPARTMENT AV Mean Gradient 5 mmHg CARDIOLOGY DEPARTMENT Specimen Performing Organization Address City/State/Zipcode Phone Number CARDIOLOGY DEPARTMENT documented in this encounter Visit Diagnoses Diagnosis T-cell lymphoma (HCC) Mycosis fungoides, unspecified site, extranodal and solid organ sites High risk medication use Encounter for long-term (current) use of other medications documented in this encounter Insurance Payer Benefit Plan / Subscriber ID Effective Dates Phone Address Type Group MEDICARE MEDICARE PART A & xxxxxxxxxxx 2011-Present Medicare B [facility] x[facility] 2016-Present [employer] OSIEL Guarantor Name Account Type Relation to Date of Phone Billing Address Patient Tom Israel Personal/Family 1945 [address] (Home) [facility] [phone] [place], [place] (Work) [address] documented as of this encounter Advance Directives [...]
--- OUTSIDE RECORDS SUMMARY | 2019-08-22 09:12 | XMS REPORT | Summary of Care ---
:1945 Author Organization [facility] Address [address] [place] [address] Care Team Providers Name Role Phone Yung Reynolds MD Primary Care Provider Reason for Visit (Routine) Status Reason Specialty Diagnoses / Procedures Referred By Referred To Contact Contact Authorized Infusion Therapy Diagnoses Non-Hodgkin lymphoma, unspecified, unspecified site [place], [facility] Infusion Procedures NE PALONOSETRON HCL NE CYCLOPHOSPHAMIDE 100 MG INJ NE DOXORUBIC HCL 10 MG VL CHEMO NE INJECTION, PEGFILGRASTIM 6MG NE BRENTUXIMAB VEDOTIN INJ MD [facility] [address] [address] [place] [id number] Encounter Details Date Type Department Care Team Description 08/14/2019 Hospital Encounter [facility] Infusion Center Outpatient [address] [phone] Allergies No Known Allergiesdocumented as of this encounter (statuses as of 08/16/2019) Medications Medication Sig Dispensed Refills Start Date [...] as of this encounter (statuses as of 08/16/2019) Active Problems Problem Noted Date Cervical lymphadenopathy 06/22/2019 Overview: Added automatically from request for surgery [id number] H/O total hip arthroplasty, right 05/04/2019 Interstitial pulmonary disease 04/18/2019 Pain in joint involving right pelvic region and thigh 03/15/2019 Primary osteoarthritis of right hip 03/15/2019 Nonhealing surgical wound, subsequent encounter 01/10/2019 Pacemaker pocket hematoma, subsequent encounter 12/20/2018 Pacemaker lead malfunction 07/28/2018 SOB (shortness of breath) 07/07/2018 Hemoptysis 07/06/2018 Cough 04/13/2018 Pleurisy 04/13/2018 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 04/13 life Atrial fibrillation, persistent 03/10/2018 Cardiac pacemaker in situ 03/07/2018 Paroxysmal atrial fibrillation 03/07/2018 Sinus node dysfunction 01/18/2018 Atrial flutter 01/13/2018 Essential hypertension 01/13/2018 ASHD (arteriosclerotic heart disease) 01/13/2018 S/P aortic valve replacement 01/13/2018 Hx of CABG 01/13/2018 Left knee pain 09/17/2016 Primary osteoarthritis of right knee 05/14/2016 documented as of this encounter (statuses as of 08/16/2019) Immunizations Name Administration Dates Next Due Depo [...] Signs Not on filedocumented in this encounter Discharge Instructions Winter Arroyo RN - 08/14/2019[facility] Medications Given Today: brentuximab Cyclophosphamide Doxorubicin Neulasta On-pro injector Premedications: Tylenol Benadryl Prednisone Aloxi Contact information: Please call the Infusion Nurses at [phone] if you have any questions, problems, or uncontrolledsymptoms. Please call the Hematology/Oncology Clinic at [phone] if you need to reschedule an appointment,talk to a provider, or request a prescription refill. If you are having uncontrolled symptoms and need to speak with a provider after 5pm, weekends, holidays please call [phone] and ask to speak with the oncologist pole frame construction worker. Reminders: Drink lots of fluids Call if any fever over 100.5 Please call anytime with any questions or concerns. documented in this encounter Plan of Treatment Date Type Specialty Care Team Description 09/04/2019 Appointment Infusion Therapy 09/04/2019 Office Visit Hematology and Oncology Jase Johnson MD [address] [place] [address] 09/04/2019 Appointment Infusion Therapy 09/18/2019 Orders Only Cardiology 09/18/2019 Office Visit Cardiology Giselle Roland CRNP [address] [address] 12/07/2019 [facility] 04/04/2020 [facility] Ar[facility]hythm[facility] Center 08/12/2020 [facility] Arrhythmia Center Health Maintenance Due Date Last [...] of this encounter Implants Implanted Type Area Computing Architect Device Shelf Model / Identifier Expiration Serial / Lot Date Smart Set Bone Cement W/ Gentimy - [id number] Right: DEPUY [id number] / Implanted: Qty: 1 on 06/07/2016 by Cooper Galvez MD at [facility] Knee / [id number] Smart Set Cement - [id number] Right: DEPUY [id number] / Implanted: Qty: 1 on 06/07/2016 by Cooper Galvez MD at [facility] Knee / [id number] Persona Tibial Stem 5 Deg Sz H R - [id number] Right: [facility] [id number] / Implanted: Qty: 1 on 06/07/2016 by Cooper Galvez MD at [facility] Knee ASSOC / [id number] Persona Femur Ps Std Sz11 R - [id number] Right: [facility] [id number] / Implanted: Qty: 1 on 06/07/2016 by Cooper Galvez MD at [facility] Knee ASSOC / [id number] Art Surface Ps 10mm R 10-12gh - [id number] Right: [facility] 2023 [id number] / Implanted: Qty: 1 on 06/07/2016 by Cooper Galvez MD at [facility] Knee ASSOC / [id number] Assurity Mri [id number] Generator - [id number] Left: [facility] [id number] / Implanted: Qty: 1 on 01/13/2018 by Adi Bustillo MD at [facility] [employer] [id number] / Lead, Tendril Mri [id number] - [id number] Left: [facility] [id number] / Implanted: Qty: 1 on 01/13/2018 by Adi Bustillo MD at [facility] [employer] [id number] / Select Secure Lead 3830-69cm - [id number] Left: [employer] 3830- 69CM / Implanted: Qty: 1 on 01/13/2018 by Adi Bustillo MD at [facility] Chest / Optisense Lead - [id number] [facility] [place] / Implanted: Qty: 1 on 06/30/2018 by Adi Bustillo MD at [facility] MEDICAL, [facility]. [id number] / 3830-59 Cm [employer] / Implanted: Qty: 1 on 12/13/2018 by Adi Bustillo MD at [facility] [id number] / Taperloc Complete Fem Stem - So Sz 15 - [id number] Right: [employer] 10/16/2027 [id number] / Implanted: Qty: 1 on 04/09/2019 by Cooper Galvez MD at [facility] Hip / [id number] Regenerex[employer]Ringloc [employer] Hole Cup Size 58 - [id number] Right: [employer] 04/29/2026 [id number] / Implanted: Qty: 1 on 04/09/2019 by Cooper Galvez MD at [facility] Hip / [id number] Dual Mobility Acetabular Liner 46 G - [id number] Right: [employer] SATHYA 02/09/2029 [id number] / Implanted: Qty: 1 on 04/09/2019 by Cooper Galvez MD at [facility] Hip ASSOC / [id number] Biolox Ceramic Head Size 28 - [id number] Right: [employer] 2028 [id number] / Implanted: Qty: 1 on 04/09/2019 by Cooper Galvez MD at [facility] Hip / [id number] Ceramic Option Taper Sleeve Size Std - [id number] Right: [employer] 11/18/2027 [id number] / Implanted: Qty: 1 on 04/09/2019 by Cooper Galvez MD at [facility] Hip / [id number] Arcomxl Active Articulation Bearing 46mm - [id number] Right: [employer] SATHYA 03/05/2024 [id number] / Implanted: Qty: 1 on 04/09/2019 by Cooper Galvez MD at [facility] Hip ASSOC / [id number] documented as of this encounter Results Not on filedocumented in this encounter Administered Medications Medication Order MAR Action Action Date Dose Rate Site acetaminophen (TYLENOL) tablet Given 08/14/2019 10:13 AM EDT 650 mg 650 mg 650 mg, Oral, X1, 1 dose, First dose on Tue08/14/19 at 1110 brentuximab vedotin (ADCETRIS) 150 New Bag 08/14/2019 11:39 AM EDT 150 mg 260 mL/hr mg in normal saline IV mixture 150 mg, Intravenous, at 260 mL/hr, X1, 1 dose, First dose on Tue08/14/19 at 1010, Infuse over 30 minutes. Do not mix or infuse with other medications., cyclophosphamide (CYTOXAN) 1,500 New Bag 08/14/2019 10:50 AM EDT 1,500 mg 650 mL/hr mg in normal saline IV mixture 1,500 mg, Intravenous, at 650 mL/hr, X1, 1 dose, First dose on Tue08/14/19 at 1010 diphenhydrAMINE (BENADRYL) capsule 50 mg Given 08/14/2019 10:13 AM EDT 50 mg 50 mg, Oral, X1, 1 dose, First dose on Tue08/14/19 at 1110 DOXOrubicin (ADRIAMYCIN) 100 mg IV New Bag 08/14/2019 11:26 AM EDT 100 mg 600 mL/hr mixture 100 mg, Intravenous, at 600 mL/hr, X1, 1 dose, First dose on Tue08/14/19 at 1010 heparin lock flush injection 100-500 Given 08/14/2019 12:13 PM EDT 500 Units Units 100-500 Units, Intravenous Push, PRN, Starting Tue08/14/19 at 1008, Until Tue08/15/19 at 0612, CVC maintenance, Flush catheter per policy, If used as flush, continue until access discontinued per RN policy., normal saline bolus 100 mL New Bag 08/14/2019 11:26 AM EDT 100 mL 200 mL/hr 100 mL, Intravenous, PRN, Starting Tue08/14/19 at 1008, Until Tue08/15/19 at 0612, Administer with medications that require free flowing IV during administration., To be administered with medications that require free flowing IV during administration., palonosetron (ALOXI) injection 0.25 mg Given 08/14/2019 10:50 AM EDT 0.25 mg 0.25 mg, Intravenous Push, X1, 1 dose, First dose on Tue08/14/19 at 1010, Flush the line with NS before and after administration., pegfilgrastim (NEULASTA ONPRO) Given 08/14/2019 12:16 PM EDT 6 mg Arm - Upper Left injection 6 mg 6 mg, Subcutaneous, X1, 1 dose, First dose on Tue08/14/19 at 1110 predniSONE (DELTASONE) tablet 100 mg Given 08/14/2019 10:13 AM EDT 100 mg 100 mg, Oral, DAILY, 3 doses, First dose on Tue08/14/19 at 1010, Last dose on Tue08/16/19 at 0900, Give prior to chemotherapy., documented in this encounter Insurance Payer Benefit Plan / Subscriber ID Effective Dates Phone Address Type Group MEDICARE MEDICARE PART A & xxxxxxxxxxx 2011-Present Medicare B [facility] xxxxxxxx 2016-Present [employer] OSI[employer] Guarantor Name Account Type Relation to Date of Phone Billing Address Patient Tom Israel Personal/Family 1945 [address] (Home) [facility] [phone] [place], [place] (Work) [id number] documented as of this encounter Advance Directives [...]
--- OUTSIDE RECORDS SUMMARY | 2019-08-22 09:12 | XMS REPORT | Summary of Care ---
:1945 Author Organization [facility] Address [address] [address] Care Team Providers Name Role Phone Yung Reynolds MD Primary Care Provider Reason for Referral Make Recommendations Only (Routine) Status Reason Specialty Diagnoses / Referred By Referred To Procedures Contact Contact Pending Review Second Opinion Diagnoses T-cell lymphoma (HCC) Jase Johnson MD [address] [address] Scheduling Instructions Please list all supporting documentation to be sent with the e-consult - limit 25 pages ( Labs, Rads, CT scans, MRI, EKG, Pathology slides, Echo's and from what date). Supporting documentation to be sent: Medical Oncology Office visit note - 07/26/19 PET-CT - 07/23/19 CT neck - 06/12/19 Pathology - 07/09/19 (already reviewed at [place] pathology) Labs from 07/26/19 Diagnostic Testing (Urgent) Status Reason Specialty Diagnoses / Referred By Referred To Contact Procedures Contact Authorized Cardiology Diagnoses T-cell lymphoma (HCC) Jase Johnson, [facility] Cardiovascular Procedures ECHOCARDIOGRAM TTE Diagnostic [address] [address] [place] [address] Phone: Reason for Visit Reason Comments New Patient Refer to Department Only (Routine) Status Reason Specialty Diagnoses / Referred By Referred To Procedures Contact Contact Closed Hematology and Diagnoses T-cell lymphoma (HCC) Dionte Camejo, Jase Johnson, Oncology MD [place] [address] [address] [place] [id number] Phone: Encounter Details Date Type Department Care Team Description 07/26/2019 Office Visit [facility] Hematology Jase Johnson, T-cell lymphoma ( HCC) Oncology MD (Primary Dx) [address] [phone] [place] [address] Allergies No Known Allergiesdocumented as of this encounter (statuses as of 07/26/2019) Medications Medication Sig Dispensed Refills Start Date [...] as of this encounter (statuses as of 07/26/2019) Active Problems Problem Noted Date Cervical lymphadenopathy 06/22/2019 Overview: Added automatically from request for surgery [id number] H/O total hip arthroplasty, right 05/04/2019 Interstitial pulmonary disease 04/18/2019 Pain in joint involving right pelvic region and thigh 03/15/2019 Primary osteoarthritis of right hip 03/15/2019 Nonhealing surgical wound, subsequent encounter 01/10/2019 Pacemaker pocket hematoma, subsequent encounter 12/20/2018 Pacemaker lead malfunction 07/28/2018 SOB (shortness of breath) 07/07/2018 Hemoptysis 07/06/2018 Cough 04/13/2018 Pleurisy 04/13/2018 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 04/13 life Atrial fibrillation, persistent 03/10/2018 Cardiac pacemaker in situ 03/07/2018 Paroxysmal atrial fibrillation 03/07/2018 Sinus node dysfunction 01/18/2018 Atrial flutter 01/13/2018 Essential hypertension 01/13/2018 ASHD (arteriosclerotic heart disease) 01/13/2018 S/P aortic valve replacement 01/13/2018 Hx of CABG 01/13/2018 Left knee pain 09/17/2016 Primary osteoarthritis of right knee 05/14/2016 documented as of this encounter (statuses as of 07/26/2019) Immunizations Name Administration Dates Next Due Depo [...] Sign Reading Time Taken Comments Blood Pressure 111/66 07/26/2019 2:08 PM EDT Pulse 69 07/26/2019 2:08 PM EDT Temperature 37.1 07/26/2019 2:08 PM EDT C (98.8 F) Respiratory Rate 16 07/26/2019 2:08 PM EDT Oxygen Saturation - - Inhaled Oxygen Concentration - - Weight 83.2 kg (183 lb 6.4 oz) 07/26/2019 2:08 PM EDT Height 175.3 cm (5' 9") 07/26/2019 2:08 PM EDT Body Mass Index 27.08 07/26/2019 2:08 PM EDT documented in this encounter Patient Instructions Patient InstructionsJase Johnson MD - 07/26/2019 2:00 PM EDT You have been referred to hematology for a new diagnosis of peripheral T-cell lymphoma, which is a type of a non-Hodgkin's lymphoma. We discussed that peripheral T-cell lymphomas are generally aggressive lymphomas however very treatable with standard chemotherapy. We discussed the treatment typically comprises of an induction phase, followed by consolidation which may include a stem cell transplant. We discussed the induction phase involves combination chemotherapy which includes 4 agents, such as brentuximab, cyclophosphamide, doxorubicin, and prednisone for 6 cycles. We discussed that doxorubicin is associated with cardiotoxicity, and given your prior cardiac issues, I will obtain an echocardiogram to assess your heart function. We discussed that based on your PET scan, it looks like you have disease but is not limited to abovethe diaphragm, however in order to complete staging I would need a bone marrow biopsy, which I will order. I will also refer you to interventional radiology for placement of a Mediport. I will also send you information to [place] for an electronic consult. ORDERS: #1. Please obtain blood work as ordered today. #2. Please refer to interventional radiology for port placement and bone marrow biopsy. #3. Please schedule echocardiogram. #4. Please schedule a follow-up with me in approximately 2 weeks with plan to initiate chemotherapywith A+CHP, tentatively 08/13/2019 Please don't hesitate to contact the cancer center should you have any questions or concerns! Contact info: Tuesday-Tuesday 8AM-5PM [phone] [place] [phone] [place] After hours, weekends, or holidays, call [phone] and ask for the Oncologist manager operations research. If you have an acute emergency call 911. documented in this encounter Progress Notes Jase Johnson MD - 07/26/2019 2:00 PM EDT PATIENT: Tom Israel : 1945 DATE OF SERVICE: 07/26/2019 REFERRING PRACTITIONER: Dionte Camejo PRIMARY CARE PROVIDER: Yung Reynolds Chief Complaint Patient presents with New Patient DIAGNOSIS: Peripheral T-cell lymphoma, NOS Remote history of Hodgkin lymphoma, early stage, status post radiation and chemotherapy almost 40 years ago STAGE: Pending HISTORY OF PRESENT ILLNESS: Tom Israel is a very pleasant 74-year-old male with newly diagnosed peripheral T-cell lymphoma who is referred to medical oncology for discussion of systemic therapy. He is accompanied by [...] NOS. His tissue was also sent to [facility] for additional pathological confirmation, and was confirmed [...] lymph node, with max SUV of 6.6. REVIEW OF SYSTEMS: On today's visit, Tom feels generally well, denies any acute complaints. He previously had experienced pretty significant fatigue sometime around when he initially noticed his lymphadenopathy, although since then has markedly dissipated, and he has enjoyed improving energy levels over the past couple of weeks. He denies any frequent drenching night sweats, or unexplained fevers. He still remains relatively active, continues to cut wood, and engage in daily activities, without any significant limitations. He denies any headaches, visual changes, nausea, vomiting, chest pain, cough, hemoptysis, shortness of breath, changes in his bowel or bladder habits, bloody stools, hematuria, back pain, etc. ECOG PS 0-1 PRIOR MEDICAL HISTORY Past Medical History: Diagnosis Date Acute coronary syndrome (HCC) Cancer (HCC) prostate 2005 Cancer (HCC) hodgkins age 20 Cardiac pacemaker in situ 03/07/2018 Cough 04/13/2018 Failure of pacemaker lead 07/28/2018 Fractures Hemoptysis 07/06/2018 High cholesterol Hodgkin's disease (HCC) Hypertension Osteoarthritis 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 life 04/13/2018 Paroxysmal atrial fibrillation (HCC) 03/07/2018 Pleurisy 04/13/2018 PRIOR SURGICAL HISTORY: Past Surgical History: Procedure Laterality Date ARTHROPLASTY TOTAL KNEE Right 06/07/2016 Procedure: ARTHROPLASTY TOTAL KNEE PERSONA; Surgeon: Cooper Galvez MD; Location: [facility] MAIN OR ECHO, TRANS ESOPHOGEAL N/A 01/12/2018 Procedure: ECHO, TRANS ESOPHOGEAL; Surgeon: Edwardo Vizcaino MD; Location: [facility] IMPLANT PERMANENT PACEMAKER INSERTION Left 01/13/2018 Procedure: IMPLANT PERMANENT PACEMAKER INSERTION; Surgeon: Adi Butsillo MD; Location: [facility] OTHER HERNIA REPAIR NE CABG, VEIN, SINGLE NE CARDIOVERSION ELECTIVE ARRHYTHMIA EXTERNAL N/A 03/10/2018 Procedure: CARDIOVERSION; Surgeon: Adi Bustillo MD; Location: [facility] NE CARDIOVERSION ELECTIVE ARRHYTHMIA EXTERNAL N/A 10/19/2018 Procedure: CARDIOVERSION; Surgeon: Adi Bustillo MD; Location: [facility] NE CARDIOVERSION ELECTIVE ARRHYTHMIA EXTERNAL N/A 12/07/2018 Procedure: CARDIOVERSION; Surgeon: Adi Bustillo MD; Location: [facility] NE EPHYS EVL TRNSPTL TX ATRIAL FIB ISOLAT PULM VEIN N/A 06/28/2018 Procedure: ABLATION PULMONARY VEIN; Surgeon: Adi Bustillo MD; Location: [facility] NE EPHYS EVL TRNSPTL TX ATRIAL FIB ISOLAT PULM VEIN N/A 12/12/2018 Procedure: ABLATION PULMONARY VEIN; Surgeon: Adi Bustillo MD; Location: [facility] NE FEMUR/KNEE SURG UNLISTED NE MILLER W/O FACETEC FORAMOT/DSKC 10/18 VRT SEG, THORACIC NE RECONSTRUCT SCAPHOID CARPAL W PROSTHESIS NE TOTAL HIP ARTHROPLASTY Right 04/09/2019 Procedure: ARTHROPLASTY TOTAL HIP CONTINUM TAPER LOC RIGHT; Surgeon: Cooper Galvez MD; Location: [facility] MAIN OR PROSTATECTOMY NEC UNLISTED PROCEDURE,MUSCULOSKELE knee [...] file Gets together: Not on file Attends orthodoxy service: Not on file Active member of [...] 2 Tabs by mouth EVERY EIGHT HOURS. furosemide (LASIX) 40 MG Oral Tab Take 1 Tab by mouth DAILY NEEDED ( bloating, leg swelling). lisinopril (PRINIVIL, ZESTRIL) 10 MG Oral Tab Take 1 Tab by mouth TWICE DAILY. (Patient taking differently: Take 5 mg by mouth DAILY.) paroxetine (PAXIL) 10 MG Oral Tab Take 10 mg by mouth EVERY BEDTIME. rivaroxaban (XARELTO) 20 MG Oral Tab Take 1 Tab by mouth DAILY. Do not resume until advised simvastatin (ZOCOR) 10 MG Oral Tab Take 10 mg by mouth EVERY BEDTIME. No current facility-administered medications for this visit. ALLERGIES: No Known Allergies VITALS: BP 111/66 (BP Location: Right arm, Patient Position: Sitting) | Pulse 69 | Temp 98.8 F (37.1 C) (Temporal) | Resp 16 | Ht 5' 9" (1.753 m) | Wt 183 lb 6.4 oz (83.2 kg) | BMI 27.08kg/m Body mass index is 27.08 kg/ m. Physical Exam Constitutional: General: He is not in acute distress. Appearance: Normal appearance. He is normal weight. He is not ill-appearing, toxic-appearing or diaphoretic. HENT: Head: Normocephalic and atraumatic. Eyes: General: No scleral icterus. Conjunctiva/sclera: Conjunctivae normal. Neck: Musculoskeletal: No muscular tenderness. Comments: Prominent posterior right cervical lymphadenopathy as well as left posterior cervical adenopathy Cardiovascular: Rate and Rhythm: Normal rate and regular rhythm. Heart sounds: Normal heart sounds. No murmur. Pulmonary: Effort: Pulmonary effort is normal. No respiratory distress. Breath sounds: Normal breath sounds. No wheezing or rales. Chest: Chest wall: No tenderness. Abdominal: General: Abdomen is flat. Bowel sounds are normal. There is no distension. Palpations: There is no mass. Tenderness: There is no tenderness. Comments: No palpable organomegaly Musculoskeletal: General: No swelling or tenderness. Right lower leg: No edema. Left lower leg: No edema. Lymphadenopathy: Cervical: Cervical adenopathy present. Skin: General: Skin is warm and dry. Coloration: Skin is not jaundiced. Findings: No erythema. Neurological: General: No focal deficit present. Mental Status: He is alert and oriented to person, place, and time. Psychiatric: Mood and Affect: Mood normal. Behavior: Behavior normal. Thought Content: Thought content normal. Judgment: Judgment normal. 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 . See comment. Comment This case is being sent to [facility] for further consultation; an addendum report will follow. Microscopic Description Lymph node architecture is replaced and shows infiltration by large atypical lymphoid cells in a background of small lymphocytes and epithelioid histiocytes with formation of granulomas associated withfoci of necrosis. Immunostaining is positive for LCA, CD2, CD3, CD4, CD5, CD20, CD23, CD30, CD43, CD 56, CD79a, PAX5, BCL-2, BCL-6 and EBV-LMP 1 (focal) with a high Ki-67 proliferation index and negative for CD7, CD8, CD10, CD15, CD34, SETH-1, OCT-2, TdT, MUM-1, ALK-1, AUG[place] and cyclin D1. CD68 highlights histiocytes. AFB and GMS stains are negative. Flow cytometric analysis is noncontributory. IMAGING: PET CT SKULL TO MID THIGH INITIAL TREATMENT Date of service: 07/23/2019 Prominent cervical lymphadenopathy starting from retropharyngeal region to supraclavicular region predominantly on the left side. Involvement is seen off the thyroid gland with a dominant right thyroid nodule which should be assessed with ultrasound. In the chest right anterior mediastinal lymph node which shows abnormality. Prior post radiation changes are seen in the paramediastinal region. Postprocedure changes seen in the sternum with maximum SUV of less than 2.5. Some increased radiopharmaceutical uptake by left anterior hemithorax with maximum SUV of 2. The costochondral junction is more posttraumatic in nature. LABORATORY DATA: Lab Results Component Value Date WBC 6.49 07/26/2019 HGB 13.0 (L) 07/26/2019 HCT 39.4 (L) 07/26/2019 PLAT 146 (L) 07/26/2019 Lab Results Component Value Date NA 138 07/26/2019 K 4.5 07/26/2019 CL 103 07/26/2019 CO2 26 07/26/2019 GLUCOSE 97 07/26/2019 BUN 21 (H) 07/26/2019 CREATININE 1.2 07/26/2019 CALCIUM 9.4 07/26/2019 TP 7.8 07/26/2019 ALBUMIN 4.2 07/26/2019 AST 33 07/26/2019 ALT 28 07/26/2019 ALK 100 07/26/2019 TBILI 1.2 (H) 07/26/2019 EGFR 60 07/26/2019 Ref. Range 07/26/2019 15:25 Ldh Latest Ref Range: 313 - 618 U/L 620 (H) Ref. Range 07/26/2019 15:25 Uric Acid Latest Ref Range: 3.5 - 8.5 MG/DL 7.8 IMPRESSION/PLAN: ICD-9-CM ICD-10-CM 1. T-cell lymphoma (HCC) 202.10 C85.90 REFER TO HEMATOLOGY / ONCOLOGY ECHOCARDIOGRAM TTE SP EVALUATION OF PATIENT SP EVALUATION OF PATIENT CBC WITH DIFFERENTIAL COMPREHENSIVE METABOLIC PANEL LACTATE DEHYDROGENASE HEPATITIS B CORE AB, TOTAL HEPATITIS B SURFACE ANTIBODY HEPATITIS B SURFACE ANTIGEN HEPATITIS C ANTIBODY HIV 1,2 ANTIBODY SCREEN URIC ACID SEDIMENTATION RATE C-REACTIVE PROTEIN C-REACTIVE PROTEIN SEDIMENTATION RATE URIC ACID HIV 1,2 ANTIBODY SCREEN HEPATITIS C ANTIBODY HEPATITIS B SURFACE ANTIGEN HEPATITIS B SURFACE ANTIBODY HEPATITIS B CORE AB, TOTAL LACTATE DEHYDROGENASE COMPREHENSIVE METABOLIC PANEL CBC WITH DIFFERENTIAL Tom Israel is a very pleasant 74-year-old male with newly diagnosed peripheral T-cell lymphoma who is referred to medical oncology for evaluation. We reviewed his recent imaging and pathology report in detail, and based on the available information thus far, he likely has stage II disease, however will need to complete staging with a bone marrow biopsy to exclude any involvement of the bone marrow. We discussed that peripheral T-cell lymphomas are relatively rare and aggressive malignancies that belong to the general category of mature T-cell lymphomas. We discussed that the treatment of peripheral T-cell lymphomas would include upfront multi-agent chemotherapy for up to 6 cycles, with interim restaging PET CT scans after 3 cycles to assess treatment response. We discussed that following upfront chemotherapy, there may be an indication for consolidation treatment with high-dose therapy and autologous stem cell transplant, depending on his overall risk factors and response to treatment. Based on the currently available information, he has an IPI score of 2 [age, elevated LDH], that would place him at a low-intermediate risk category, which is generally associated with a 5-year overall survival rate of approximately 50% . However, if he is found to have bone marrow involvement, he would be upstaged and is associated with a far worse prognosis with a 5-year survival in the range of 20% orless with combination chemotherapy alone, and would likely need consolidation with stem cell transplant. We discussed the current standard of care chemotherapy for newly diagnosed CD30 positive T-cell lymphomas is brentuximab vedotin, cyclophosphamide, doxorubicin , and prednisone [A+CHP], which has demonstrated a marked improvement in overall response, including complete response, compared to CHOP therapy (ECHELON -2). We discussed the risks and benefits of therapy, including the potential toxicities oftreatment such as worsening fatigue, diarrhea, peripheral neuropathy, cytopenias and increased risk of infection, cardiotoxicity, risk of secondary malignancies, etc. #1. I will plan to obtain a transthoracic echocardiogram to evaluate cardiac function prior to anthracycline therapy. He has baseline cardiac issues including atrial fibrillation, although his most recent echocardiogram from December that showed an ejection fraction of 65%. Given his prior history of Hodgkin's disease, he may have been exposed to doxorubicin which was available in the early 1970s. #2. Refer to interventional radiology for bone marrow biopsy and placement of Mediport in anticipation of chemotherapy. #3. I will obtain blood work today, including a CBC, CMP, LDH, uric acid, viral titers including hepatitis and HIV #4. I will place an electronic consult for [facility] recommendations regarding his case, given the rare and aggressive nature of his disease. #5. I will plan to follow-up with him tentatively in 2 weeks for possible initiation of cycle 1 of A+CHP The following plan was discussed in detail with the patient and his , they verbalized understanding, and are in agreement. All questions were answered to the best of their satisfaction. Written information was provided regarding the above-mentioned chemotherapy regimen detailing all potential side effects. Continue to follow-up with PCP as scheduled for all other chronic medical needs. A total of 70 minutes of direct hbhf-[id number] time was spent during this clinical encounter, of whichmore than 50% was spent in reviewing history, medical records including imaging, labs, providing education regarding the diagnosis, discussing prognosis, reviewing treatment plan, as well as answering pertinent questions. Follow up: Schedule follow-up here in 2 week(s). Author: Jase Johnson MD 07/26/2019 17:10 documented in this encounter Plan of Treatment Date Type Specialty Care Team Description 07/30/2019 Appointment Cardiology 08/10/2019 [facility] 09/18/2019 Orders Only Cardiology 09/18/2019 Office Visit Cardiology Giselle Roland CRNP [address] [address] [phone] 12/07/2019 [facility] Arrhythmia Center 04/04/2020 [facility] Arrhythmia Center Name Type Priority Associated Diagnoses Date/Time HIV 1,2 ANTIBODY SCREEN Lab Routine T-cell lymphoma (HCC) 07/26/2019 3:25 PM EDT Name Type Priority Associated Diagnoses Order Schedule ECHOCARDIOGRAM TTE CV Lab GOLDY T-cell lymphoma (HCC) Expected: 07/26/2019, Expires: 08/29/2020 SP EVALUATION OF PATIENT Imaging Routine T-cell lymphoma (HCC) Expected: , Expires: 07/25/2020 SP EVALUATION OF PATIENT Imaging Routine T-cell lymphoma (HCC) Expected: , Expires: 07/25/2020 HIV 1,2 ANTIBODY SCREEN Lab Routine T-cell lymphoma (HCC) Expected: 2018 (Approximate), Expires: 07/26/2020 Name Type Priority Associated Diagnoses Order Schedule ELECTRONIC CONSULT TO Referral Routine T-cell lymphoma (HCC) Ordered: 07/26 [facility] Health Maintenance Due Date Last Done Comments [...] of this encounter Implants Implanted Type Area Railway Station Manager Device Shelf Model / Identifier Expiration Serial / Lot Date Smart Set Bone Cement W/ Gentimy - [id number] Right: DEPUY [id number] / Implanted: Qty: 1 on 06/07/2016 by Cooper Galvez MD at [facility] Knee / [id number] Smart Set Cement - [id number] Right: DEPUY [id number] / Implanted: Qty: 1 on 06/07/2016 by Cooper Galvez MD at [facility] Knee / [id number] Persona Tibial Stem 5 Deg Sz H R - [id number] Right: HOLLIE MCDONNELL [id number] / Implanted: Qty: 1 on 06/07/2016 by Cooper Galvez MD at [facility] Knee ASSOC / [id number] Persona Femur Ps Std Sz11 R - [id number] Right: HOLLIE MCDONNELL [id number] / Implanted: Qty: 1 on 06/07/2016 by Cooper Galvez MD at [facility] Knee ASSOC / [id number] Art Surface Ps 10mm R 10-12gh - [id number] Right: HOLLIE MCDONNELL 2023 [id number] / Implanted: Qty: 1 on 06/07/2016 by Cooper Galvez MD at [facility] Knee ASSOC / [id number] Assurity Mri [id number] Generator - [id number] Left: [employer] [employer] [id number] / Implanted: Qty: 1 on 01/13/2018 by dAi Bustillo MD at [facility] [id number] / Lead, Tendril Mri Cls9918h-63 - [id number] Left: [employer] [place] [id number] / Implanted: Qty: 1 on 01/13/2018 by Adi Bustillo MD at [facility] [id number] / Select Secure Lead 3830-69cm - [id number] Left: [employer] 3830- 69CM / Implanted: Qty: 1 on 01/13/2018 by Adi Bustillo MD at [facility] Chest / Optisense Lead - [id number] [facility] [place] / Implanted: Qty: 1 on 06/30/2018 by Adi Bustillo MD at [facility] [id number] / 3830-59 Cm [employer] / Implanted: Qty: 1 on 12/13/2018 by Adi Bustillo MD at [facility] [id number] / Taperloc Complete Fem Stem - So Sz 15 - [id number] Right: [employer]IE [employer] 10/16/2027 [id number] / Implanted: Qty: 1 on 04/09/2019 by Cooper Galvez MD at [facility] Hip / [id number] Regenerex/Ringloc Ltd Hole Cup Size 58 - [id number] Right: [employer] 04/29/2026 [id number] / Implanted: Qty: 1 on 04/09/2019 by Cooper Galvez MD at [facility] Hip / [id number] Dual Mobility Acetabular Liner 46 G - [id number] Right: HOLLIE SATHYA 02/09/2029 [id number] / Implanted: Qty: 1 on 04/09/2019 by Cooper Galvez MD at [facility] Hip ASSOC / [id number] Biolox Ceramic Head Size 28 - [id number] Right: [employer] 2028 [id number] / Implanted: Qty: 1 on 04/09/2019 by Cooper Galvez MD at [facility] Hip / [id number] Ceramic Option Taper Sleeve Size Std - [id number] Right: HOLLIE [employer] 11/18/2027 [id number] / Implanted: Qty: 1 on 04/09/2019 by Cooper Galvez MD at [facility] Hip / [id number] Arcomxl Active Articulation Bearing 46mm - [id number] Right: HOLLIEWILLI MCDONNELL 03/05/2024 [id number] / Implanted: Qty: 1 on 04/09/2019 by Cooper Galvez MD at [facility] Hip ASSOC / [id number] documented as of this encounter Procedures Procedure Name Priority Date/Time Associated Comments Diagnosis HEPATITIS B CORE AB, Routine 07/26/2019 3:25 T-cell lymphoma Results for this TOTAL PM EDT (HCC) procedure are in the results section. CBC WITH DIFFERENTIAL STAT 07/26/2019 3:25 T-cell lymphoma Results for this PM EDT (HCC) procedure are in the results section. HEPATITIS B SURFACE Routine 07/26/2019 3:25 T-cell lymphoma Results for this ANTIBODY PM EDT (HCC) procedure are in the results section. HEPATITIS C ANTIBODY Routine 07/26/2019 3:25 T-cell lymphoma Results for this PM EDT (HCC) procedure are in the results section. HEPATITIS B SURFACE Routine 07/26/2019 3:25 T-cell lymphoma Results for this ANTIGEN PM EDT (HCC) procedure are in the results section. C-REACTIVE PROTEIN Routine 07/26/2019 3:25 T-cell lymphoma Results for this PM EDT (HCC) procedure are in the results section. URIC ACID Routine 07/26/2019 3:25 T-cell lymphoma Results for this PM EDT (HCC) procedure are in the results section. LACTATE DEYDROGENASE STAT 07/26/2019 3:25 T-cell lymphoma Results for this PM EDT (HCC) procedure are in the results section. COMPREHENSIVE Routine 07/26/2019 3:25 T-cell lymphoma Results for this METABOLIC PANEL PM EDT (HCC) procedure are in the results section. SEDIMENTATION RATE Routine 07/26/2019 3:25 T-cell lymphoma Results for this PM EDT (HCC) procedure are in the results section. documented in this encounter Results C-REACTIVE PROTEIN (07/26/2019 3:25 PM EDT) C-Reactive Protein 2.10 (H) <1.00 mg/dl [facility] Specimen Blood - Blood specimen (specimen) Performing Organization Address [facility] Phone Number [facility] [address] [place] [address] [phone] SEDIMENTATION RATE (07/26/2019 3:25 PM EDT) ESR 51 (H)Comment: 0 - 20 MM/HR [facility] LABORATORY changed 04/11/19. Please note updated reference range. Specimen Blood - Blood specimen (specimen) Performing Organization Address [facility] Cent[facility]ode Phone Number [facility] [address] [place] [address] URIC ACID (07/26/2019 3:25 PM EDT) Uric Acid 7.8 3.5 - 8.5 MG/DL [facility] Specimen Blood - Blood specimen (specimen) Performing Organization Address [facility] Cent[facility] Phone Number [facility] [address] [place] [address] HEPATITIS C ANTIBODY (07/26/2019 3:25 PM EDT) Hepatitis C Ab 0.03 <1.00 S/C [facility] Specimen Blood - Blood specimen (specimen) Narrative Performed At [facility] Test Result [facility] Conclusion From Testing Algorithm <1.00 Negative >=1.00 Reactive Note For Reactive Results: A positive test result by this screening method does not confirm the presence of Hepatitis C antibodies. Confirmation by Hepatitis C Virus RNA PCR (Heptamax) is required. Due to stability issues, a new specimen must be obtained for Hepatitis C Virus RNA PCR testing. Performing Organization Address [facility] Centercoaz Phone Number [facility] [address] [place] [address] HEPATITIS B SURFACE ANTIGEN (07/26/2019 3:25 PM EDT) Hepatitis B Surface 0.08 <0.90 S/C [facility] Antigen LABORATORY Specimen Blood - Blood specimen (specimen) Narrative Performed At [facility] Test Result [facility] Conclusion from Testing Algorithm <0.90 Negative >=0.90 and <=5.00 Reactive >5.00 Positive Performing Organization Address [facility] Phone Number [facility] [address] [place] [address] HEPATITIS B SURFACE ANTIBODY (07/26/2019 3:25 PM EDT) Hepatitis B 0.00 (L) See Result [facility] Surface Antibody Interpretation for GROUP LABORATORY Immune Status mIU/ml Specimen Blood - Blood specimen (specimen) Narrative Performed At Vitro Test Result [facility] Result Interpretation <5.00 mIU/ml Negative or Non-Immune >=5.00 and <12.0 mIU/ml Indeterminate* >=12.0 mIU/ml Positive or Immune *Note for Indeterminate Results: It is recommended that a new specimen be obtained in two weeks and retested. Performing Organization Address [facility] Phone Number [facility] [address] [place] [address] HEPATITIS B CORE AB, TOTAL (07/26/2019 3:25 PM EDT) Hb Core Ab 3.31 >1.00 S/C [facility] Specimen Blood - Blood specimen (specimen) Narrative Performed At [facility] Test Result [facility] Conclusion From Testing Algorithm <=0.90 Reactive >1.10 Negative Performing Organization Address [facility] Phone Number [facility] [address] [place] [address] [phone] LACTATE DEHYDROGENASE (07/26/2019 3:25 PM EDT) LDH 620 (H) 313 - 618 U/L [facility] Specimen Blood - Blood specimen (specimen) Performing Organization Address [facility] Phone Number [facility] [address] [facility] [place] [address] [phone] COMPREHENSIVE METABOLIC PANEL (07/26/2019 3:25 PM EDT) Sodium 138 134 - 145 mmol/L [facility] Potassium 4.5 3.5 - 5.1 mmol/L [facility] Chloride 103 98 - 107 mmol/L [facility] CO2 26 22 - 30 mmol/L [facility] Calcium 9.4 8.3 - 10.1 mg/dl [facility] Albumin 4.2 3.5 - 5.0 g/dl [facility] BUN 21 (H) 9 - 20 mg/dl [facility] Creatinine 1.2 0.8 - 1.5 mg/dl [facility] Glucose 97 70 - 99 mg/dl [facility] Total Protein 7.8 6.3 - 8.2 g/dl [facility] Total Bilirubin 1.2 (H) 0.0 - 1.1 MG/DL [facility] AST 33 17 - 59 U/L [facility] ALT 28 21 - 72 U/L [facility] Alkaline 100 40 - 150 U/L [facility] Phosphatase [facility] eGFR 60 See Interpretation [facility] Comment: Below ml/min/1.73ml GROUP Estimated GFR Interpretation: Sq LABORATORY Above 60ml/min/1.73m2 = Normal Renal Function 30-59 ml/min/1.73m2 = Stage 3 Chronic Kidney Disease 15-29 ml/min/1.73m2 = Stage 4 Chronic Kidney Disease Less than 15 ml/min/1.73m2 = Stage 5 Chronic Kidney Disease The GFR value is calculated using the Modification of Diet in Renal Disease ( MDRD) Study Equation which can be found at: https://www.kidney.org/content/gmaf-hngix-rdlmjjxl BUN/Creatinine 18 6 - 22 RATIO [facility] GROUP LABORATORY Anion Gap 9 3 - 11 mmol/L [facility] A/G Ratio 1.2 0.8 - 2.0 ratio [facility] Specimen Blood - Blood specimen (specimen) Performing Organization Address City/[facility] Cent[facility] Phone Number [facility] [address] [place] [address] [phone] CBC WITH DIFFERENTIAL (07/26/2019 3:25 PM EDT) WBC Count 6.49 4.23 - 9.07 K/uL [facility] RBC Count 4.17 (L) 4.30 - 5.89 M/UL [facility] Hemoglobin 13.0 (L) 13.7 - 17.5 g/dL [facility] Hematocrit 39.4 (L) 40.1 - 51.0 % [facility] MCV 94.5 (H) 79.0 - 92.2 FL [facility] MCH 31.2 25.7 - 32.2 PG [facility] MCHC 33.0 32.3 - 36.5 g/dL [facility] Platelet Count 146 (L) 163 - 337 K/uL [facility] MPV 10.3 9.4 - 12.4 FL [facility] RDW 13.2 11.6 - 14.4 % [facility] Neutrophil % 67.1 34.0 - 67.9 % [facility] Lymphocyte % 13.6 (L) 21.8 - 53.1 % [facility] Monocyte % 14.3 (H) 5.3 - 12.2 % [facility] Eosinophil % 4.0 0.8 - 7.0 % [facility] Basophil % 0.8 0.2 - 1.2 % [facility] nRBC % 0.0 0.0 - 0.2 % [facility] Neutrophil # 4.36 1.78 - 5.38 K/UL [facility] Lymphocyte # 0.88 (L) 1.32 - 3.57 K/UL [facility] Monocyte # 0.93 (H) 0.30 - 0.82 K/UL [facility] Eosinophil # 0.26 0.04 - 0.54 K/UL [facility] Basophil # 0.05 0.01 - 0.08 K/UL [facility] Immature Gran % 0.2 0.0 - 0.4 % [facility] Immature Gran # 0.01 0.00 - 0.03 K/uL [facility] NRBC # 0.00 0.00 - 0.12 K/uL [facility] Specimen Blood - Blood specimen (specimen) Performing Organization Address City/State/Zipcode Phone Number [facility] [address] [place] [id number] documented in this encounter Visit Diagnoses Diagnosis 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
--- OUTSIDE RECORDS SUMMARY | 2019-08-22 09:12 | XMS REPORT | Summary of Care ---
:1945 Author Organization [facility] Address [address] [address] Care Team Providers Name Role Phone Yung Reynolds MD Primary Care Provider Reason for Referral Diagnostic Testing (Routine) Status Reason Specialty Diagnoses / Procedures Referred By Contact Referred To Contact Closed Diagnoses T-cell lymphoma (HCC) Clarke Gonzalez MD Procedures SP CT BONE MARROW ASPIRATION & BIOPSY [address] [address] Reason for Visit Auth/Cert Status Reason Specialty Diagnoses / Procedures Referred By Contact Referred To Contact Encounter Details Date Type Department Care Team Description 08/03/2019 Hospital Encounter [facility] Clarke Gonzalez MD Short Procedure 1 [facility] [address] [address] [address] [address] Allergies No Known Allergiesdocumented as of this encounter (statuses as of 08/04/2019) Medications Medication Sig Dispensed Refills Start Date [...] as of this encounter (statuses as of 08/04/2019) Active Problems Problem Noted Date Cervical lymphadenopathy 06/22/2019 Overview: Added automatically from request for surgery [id number] H/O total hip arthroplasty, right 05/04/2019 Interstitial pulmonary disease 04/18/2019 Pain in joint involving right pelvic region and thigh 03/15/2019 Primary osteoarthritis of right hip 03/15/2019 Nonhealing surgical wound, subsequent encounter 01/10/2019 Pacemaker pocket hematoma, subsequent encounter 12/20/2018 Pacemaker lead malfunction 07/28/2018 SOB (shortness of breath) 07/07/2018 Hemoptysis 07/06/2018 Cough 04/13/2018 Pleurisy 04/13/2018 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 04/13 life Atrial fibrillation, persistent 03/10/2018 Cardiac pacemaker in situ 03/07/2018 Paroxysmal atrial fibrillation 03/07/2018 Sinus node dysfunction 01/18/2018 Atrial flutter 01/13/2018 Essential hypertension 01/13/2018 ASHD (arteriosclerotic heart disease) 01/13/2018 S/P aortic valve replacement 01/13/2018 Hx of CABG 01/13/2018 Left knee pain 09/17/2016 Primary osteoarthritis of right knee 05/14/2016 documented as of this encounter (statuses as of 08/04/2019) Immunizations Name Administration Dates Next Due Depo [...] Sign Reading Time Taken Comments Blood Pressure 166/72 08/03/2019 10:45 AM EDT Pulse 68 08/03/2019 10:45 AM EDT Temperature 36.6 08/03/2019 7:00 AM EDT C (97.9 F) Respiratory Rate 15 08/03/2019 9:40 AM EDT Oxygen Saturation 97% 08/03/2019 10:45 AM EDT Inhaled Oxygen Concentration - - Weight 83.6 kg (184 lb 4.8 oz) 08/03/2019 7:00 AM EDT Height 175.3 cm (5' 9") 08/03/2019 7:00 AM EDT Body Mass Index 27.22 08/03/2019 7:00 AM EDT documented in this encounter Discharge Summaries Clarke Gonzalez MD - 08/03/2019 11:50 AM EDT [facility] [address]. [id number] Interventional Radiology Discharge Summary Patient: Tom Israel Admission Date: 08/03/19 Discharge Date: 08/03/2019 Attending: PCP: Yung Reynolds 1. Reason for admission: T cell lymphoma staging and treatment 2. Diagnosis: T cell lymphoma 3. Procedures: bone marrow biopsy, right IJ port placement 4. Complications: none 5. Condition on Discharge: Afebrile, Ambulating, Eating, Drinking, Voiding and Stable 6. Activity: no lifting, Driving, or Strenuous exercise for 24 hrs 7. Follow-up: Follow path. Management of port per oncology nursing. Consult for removal when treatment complete. No orders of the defined types were placed in this encounter. Author: Clarke Gonzalez MD 08/03/2019 13:35 documented in this encounter Plan of Treatment Date Type Specialty Care Team Description 08/10/2019 [facility] 08/10/2019 Hemonc Nurse/Clinical Hematology and Support Oncology 08/14/2019 Appointment Infusion Therapy 08/14/2019 Office Visit Hematology and Jase Johnson, Oncology [address] [address] 08/14/2019 Appointment Infusion Therapy 09/18/2019 Orders Only Cardiology 09/18/2019 Office Visit Cardiology Giselle Roland CRNP [address] [address] [phone] 12/07/2019 [facility] 04/04/2020 [facility] Name Type Priority Associated Diagnoses Date/Time BONE MARROW EXAM Lab Routine 08/03/2019 8:49 AM EDT BONE MARROW LABELS Lab Routine 08/03/2019 8:49 AM EDT MISCELLANEOUS LAB TESTING Lab Routine 08/03/2019 8:49 AM EDT Name Type Priority Associated Order Schedule Diagnoses PREPARE PATIENT Diagnostic/Surgical Routine One Time for 1 FOR: Procedures Occurrences starting 08/03/2019 until 08/03/2019 BONE MARROW EXAM Lab Routine ONE TIME for 1 Occurrences starting 08/03/2019 until 08/03/2019, 1 completed Health Maintenance Due Date Last Done Comments [...] of this encounter Implants Implanted Type Area Laboratory Animal Caretaker Device Shelf Model / Identifier Expiration Serial / Lot Date Smart Set Bone Cement W/ Gentimy - [id number] Right: DEPUY [id number] / Implanted: Qty: 1 on 06/07/2016 by Cooper Galvez MD at [facility] Knee / [id number] Smart Set Cement - [id number] Right: DEPUY [id number] / Implanted: Qty: 1 on 06/07/2016 by Cooper Galvez MD at [facility] Knee / [id number] Persona Tibial Stem 5 Deg Sz H R - [id number] Right: HOLLIE SATHYA [id number] / Implanted: Qty: 1 on 06/07/2016 by Cooper Galvez MD at [facility] Knee ASSOC / [id number] Persona Femur Ps Std Sz11 R - [id number] Right: HOLLIE MCDONNELL [id number] / Implanted: Qty: 1 on 06/07/2016 by Cooper Galvez MD at [facility] Knee ASSOC / [id number] Art Surface Ps 10mm R -12gh - [id number] Right: HOLLIEWILLI MCDONNELL 2023 [id number] / Implanted: Qty: 1 on 06/07/2016 by Cooper Galvez MD at [facility] Knee ASSOC / [id number] Assurity Mri [id number] Generator - [id number] Left: [facility] [employer] [id number] / Implanted: Qty: 1 on 01/13/2018 by Adi Bustillo MD at [facility] [employer] [id number] / Lead, Tendril Mri [id number] - [id number] Left: [facility] [place] [id number] / Implanted: Qty: 1 on 01/13/2018 by Adi Bustillo MD at [facility] [employer] [id number] / Select Secure Lead 3830-69cm - [id number] Left: [employer] 3830- 69CM / Implanted: Qty: 1 on 01/13/2018 by Adi Bustillo MD at [facility] Chest / Optisense Lead - [id number] ST[place] GEOV[place]NA / Implanted: Qty: 1 on 06/30/2018 by Adi Bustillo MD at [facility] [employer] [id number] / 3830-59 Cm [employer] / Implanted: Qty: 1 on 12/13/2018 by Adi Bustillo MD at [facility] [id number] / Taperloc Complete Fem Stem - So Sz 15 - [id number] Right: HOLLIE [employer] 10/16/2027 [id number] / Implanted: Qty: 1 on 04/09/2019 by Cooper Galvez MD at [facility] Hip / [id number] Regenerex/Ringloc Ltd Hole Cup Size 58 - [id number] Right: HOLLIE [employer] 04/29/2026 [id number] / Implanted: Qty: 1 on 04/09/2019 by Cooper Galvez MD at [facility] Hip / [id number] Dual Mobility Acetabular Liner 46 G - [id number] Right: HOLLIE SATHYA 02/09/2029 [id number] / Implanted: Qty: 1 on 04/09/2019 by Cooper Galvez MD at [facility] Hip ASSOC / [id number] Ceramic Head Size 28 - [id number] Right: HOLLIE [employer] 2028 [id number] / Implanted: Qty: 1 on 04/09/2019 by Cooper Galvez MD at [facility] Hip / [id number] Ceramic Option Taper Sleeve Size Std - [id number] Right: HOLLIE [employer] 11/18/2027 [id number] / Implanted: Qty: 1 on 04/09/2019 by Cooper Galvez MD at [facility] Hip / [id number] Active Articulation Bearing 46mm - [id number] Right: HOLLIE SATHYA 03/05/2024 [id number] / Implanted: Qty: 1 on 04/09/2019 by Cooper Galvez MD at [facility] Hip ASSOC / [id number] documented as of this encounter Procedures Procedure Name Priority Date/Time Associated Comments Diagnosis SP CT BONE MARROW Routine 08/03/2019 10:09 AM T-cell lymphoma Results for this ASPIRATION & BIOPSY EDT (HCC) procedure are in the results section. SP INSERT TUNNELED Routine 08/03/2019 9:56 AM T-cell lymphoma Results for this CVAD W PORT EDT (HCC) procedure are in the results section. documented in this encounter Results SP CT BONE MARROW ASPIRATION & BIOPSY (08/03/2019 10:09 AM EDT) Specimen Impressions Performed At Successful CT-guided bone marrow aspiration and core bone biopsy. Thank you for choosing [facility]. Signed by Clarke Gonzalez MD on 08/03/2019 11:55 AM Narrative Performed At Procedure(s): SP CT BONE MARROW ASPIRATION & BIOPSY Date of service: 08/03/2019 8:[address]-guided bone marrow aspiration and core bone biopsy CLINICAL INDICATION: 74-year-old male with a new diagnosis of T cell lymphoma, request for bone marrow biopsy for staging. Physician: Clarke Gonzalez M.D. MEDICATIONS: Local lidocaine, moderate sedation with IV Versed and fentanyl. Next Complications: None Procedure/findings: Informed consent for the procedure was obtained after risks, benefits and potential complications had been discussed. The patient was placed on the CT procedural table in prone position and skin of the posterior abdominal wall and pelvis was prepped and draped in a sterile fashion. Local anesthesia was effected by [address] fluoroscopy guidance, a 10-gauge bone marrow biopsy needle was advanced into the left posterior superior iliac spine. Bone marrow aspirate was obtained followed by core bone marrow biopsy specimen obtained coaxially using a 13-gauge bone biopsy needle with the assistance of a drill. Meticulous hemostasis was maintained. The patient tolerated the procedure well without any immediate complications. Sterile dressing was applied. The patient was transported to same day surgery for monitoring and recovery. Procedure Note Interface, Rad Results - 08/03/2019 11:57 AM EDT Procedure(s): SP CT BONE MARROW ASPIRATION & BIOPSY Date of service: 08/03/2019 8:[address]-guided bone marrow aspiration and core bone biopsy CLINICAL INDICATION: 74-year-old male with a new diagnosis of T cell lymphoma, request for bone marrow biopsy for staging. Physician: Clarke Gonzalez M.D. MEDICATIONS: Local lidocaine, moderate sedation with IV Versed and fentanyl. Next Complications: None Procedure/findings: Informed consent for the procedure was obtained after risks, benefits and potential complications had been discussed. The patient was placed on the CT procedural table in prone position and skin of the posterior abdominal wall and pelvis was prepped and draped in a sterile fashion. Local anesthesia was effected by [address] fluoroscopy guidance, a 10-gauge bone marrow biopsy needle was advanced into the left posterior superior iliac spine. Bone marrow aspirate was obtained followed by core bone marrow biopsy specimen obtained coaxially using a 13-gauge bone biopsy needle with the assistance of a drill. Meticulous hemostasis was maintained. The patient tolerated the procedure well without any immediate complications. Sterile dressing was applied. The patient was transported to same day surgery for monitoring and recovery. IMPRESSION Successful CT-guided bone marrow aspiration and core bone biopsy. Thank you for choosing [facility]. Signed by Clarke Gonzalez MD on 08/03/2019 11:55 AM SP INSERT TUNNELED CVAD W PORT (08/03/2019 9:56 AM EDT) Specimen Impressions Performed At Successful Right IJ Low Profile power injectable port placement. Plan: The port may be used immediately. The patient tolerated the procedure well and was transferred in stable condition. Thank you for choosing [facility]. Signed by Clarke Gonzalez MD on 08/03/2019 2:15 PM Narrative Performed At Procedure(s): SP INSERT TUNNELED CVAD W PORT Date of service: 08/03/2019 9:07 AM Clinical indication: 74 years old male with a history of T-cell lymphoma, need for chemotherapy access. Physician: Clarke Gonzalez M.D. Medications: Versed 1 mg i.v., fentanyl 50 mcg i.v., Ancef 2 g i.v. administered and monitored by the moderate sedation nurse. Fluoroscopy time: 0 minutes 18 seconds. Dose Area Product (DAP): 626 mGycm2 Air Kerma: 2.5 mGy Procedure time: 30 minutes Complications: None Procedure: Informed consent was obtained prior to the procedure. A procedural timeout was performed verifying proper patient, procedure and position. Using real-time ultrasound guidance the Right internal jugular vein was accessed and a peel-away sheath was placed. A subcutaneous pocket was then created using blunt dissection. A Low Profile power injectable port was flushed with normal saline. The port was placed within the pocket and the catheter was then advanced under fluoroscopic guidance through the peel-away sheath to the right atrium. The catheter was attached firmly to the port. The port was accessed and aspirated freely. Saline injection was then performed and there was no leakage. The port was flushed with heparin solution. The port pocket was closed with 3-0 absorbable suture and skin glue. Skin glue was also utilized for closure of the dermatotomy. The port may be used immediately. EBL: Less than 5 cc Findings: 1. Ultrasound examination demonstrates a patent internal right jugular vein. 2. Final fluoroscopic image demonstrates the port to be in good position. Procedure Note Interface, Rad Results - 08/03/2019 2:17 PM EDT Procedure(s): SP INSERT TUNNELED CVAD W PORT Date of service: 08/03/2019 9:07 AM Clinical indication: 74 years old male with a history of T-cell lymphoma, need for chemotherapy access. Physician: Clarke Gonzalez M.D. Medications: Versed 1 mg i.v., fentanyl 50 mcg i.v., Ancef 2 g i.v. administered and monitored by the moderate sedation nurse. Fluoroscopy time: 0 minutes 18 seconds. Dose Area Product (DAP): 626 mGycm2 Air Kerma: 2.5 mGy Procedure time: 30 minutes Complications: None Procedure: Informed consent was obtained prior to the procedure. A procedural timeout was performed verifying proper patient, procedure and position. Using real-time ultrasound guidance the Right internal jugular vein was accessed and a peel-away sheath was placed. A subcutaneous pocket was then created using blunt dissection. A Low Profile power injectable port was flushed with normal saline. The port was placed within the pocket and the catheter was then advanced under fluoroscopic guidance through the peel-away sheath to the right atrium. The catheter was attached firmly to the port. The port was accessed and aspirated freely. Saline injection was then performed and there was no leakage. The port was flushed with heparin solution. The port pocket was closed with 3-0 absorbable suture and skin glue. Skin glue was also utilized for closure of the dermatotomy. The port may be used immediately. EBL: Less than 5 cc Findings: 1. Ultrasound examination demonstrates a patent internal right jugular vein. 2. Final fluoroscopic image demonstrates the port to be in good position. IMPRESSION Successful Right IJ Low Profile power injectable port placement. Plan: The port may be used immediately. The patient tolerated the procedure well and was transferred in stable condition. Thank you for choosing [facility]. Signed by Clarke Gonzalez MD on 08/03/2019 2:15 PM documented in this encounter Visit Diagnoses Diagnosis T-cell lymphoma (HCC) Mycosis fungoides, unspecified site, extranodal and solid organ sites documented in this encounter Administered Medications Medication Order MAR Action Action Date Dose Rate Site acetaminophen (TYLENOL) tablet 325 mg 325 mg, Oral, Q4 HRS PRN, Starting Tue08/03/19 at 1003, Until Tue08/03/19 at 1350, Mild Pain (pain scale 1-3) - PO - 1st line - if immediate effect not required and patient can tolerate PO cefazolin (ANCEF, KEFZOL) injection Given 08/03/2019 9:10 AM EDT 2,000 mg Intravenous Push, PRN, Starting Tue08/03/19 at 0910, Until Tue08/03/19 at 0910 FentaNYL (PF) (SUBLIMAZE) injection (PF) Given 08/03/2019 8:35 AM EDT 50 mcg Intravenous Push, PRN, Starting Tue08/03/19 at 0835, Until Tue08/03/19 at 0835 FentaNYL (PF) (SUBLIMAZE) injection (PF) Given 08/03/2019 9:26 AM EDT 50 mcg Intravenous Push, PRN, Starting Tue08/03/19 at 0926, Until Tue08/03/19 at 0926 midazolam (VERSED) injection Given 08/03/2019 8:35 AM EDT 1 mg Intravenous Push, PRN, Starting Tue08/03/19 at 0835, Until Tue08/03/19 at 0835 midazolam (VERSED) injection Given 08/03/2019 9:26 AM EDT 1 mg Intravenous Push, PRN, Starting Tue08/03/19 at 0926, Until Tue08/03/19 at 0926 normal saline IV New Bag 08/03/2019 7:30 AM EDT 80 mL/hr Intravenous, at 80 mL/hr, CONTINUOUS, Starting Tue08/03/19 at 0730, Until Tue08/03/19 at 1350 OXYcodone-acetaminophen (PERCOCET) 5-325 mg 1 Tab 1 Tab, Oral, Q4 HRS PRN, Starting Tue08/03/19 at 1003, Until Tue08/03/19 at 1350, Moderate Pain (pain scale 4-6) - PO - 1st line - if immediate effect not required and patient can tolerate PO documented in this encounter Insurance Payer Benefit Plan / Subscriber ID Effective Dates Phone Address Type Group MEDICARE MEDICARE PART A & xxxxxxxxxxx 2011-Present Medicare [facility] x[facility]xxx 2016-Present [employer] [place] (Work) [phone] documented as of this encounter Advance Directives [...]
--- OUTSIDE RECORDS SUMMARY | 2019-08-22 09:12 | XMS REPORT | Summary of Care ---
:1945 Author Organization [facility] Address [address] [address] Care Team Providers Name Role Phone Yung Reynolds MD Primary Care Provider Encounter Details Date Type Department Care Team Description 08/14/2019 Hospital Encounter [facility] Infusion Center Outpatient [address] [id number] Allergies No Known Allergiesdocumented as of this [...] Overview: Added automatically from request for surgery [id number] H/O total hip arthroplasty, right 05/04/2019 Interstitial pulmonary disease 04/18/2019 Pain in joint involving right pelvic region and thigh 03/15/2019 Primary osteoarthritis of right hip 03/15/2019 Nonhealing surgical wound, subsequent encounter 01/10/2019 Pacemaker pocket hematoma, subsequent encounter 12/20/2018 Pacemaker lead malfunction 07/28/2018 SOB (shortness of breath) 07/07/2018 Hemoptysis 07/06/2018 Cough 04/13/2018 Pleurisy 04/13/2018 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 Knee / [id number] Smart Set Cement - [id number] Right: DEPUY [id number] / Implanted: Qty: 1 on 06/07/2016 by Cooper Galvez MD at [facility] Knee / [id number] Persona Tibial Stem 5 Deg Sz H R - [id number] Right: HOLLIE MCDONNELL [id number] / Implanted: Qty: 1 on 06/07/2016 by Cooper Galvez MD at [facility] Knee ASSOC / [id number] Persona Femur Ps Std Sz11 R - [id number] Right: HOLLIE MCDONNELL [id number] / Implanted: Qty: 1 on 06/07/2016 by Cooper Galvez MD at [facility] Knee ASSOC / [id number] Art Surface Ps 10mm R 10-12gh - [id number] Right: HOLLIE MCDONNELL 2023 [id number] / Implanted: Qty: 1 on 06/07/2016 by Cooper Galvez MD at [facility] Knee ASSOC / [id number] Assurity Mri Mt2030 Generator - [id number] Left: [facility] [place] [id number] / Implanted: Qty: 1 on 01/13/2018 by Adi Bustillo MD at [facility] [id number] / Lead, Tendril Mri [id number] - [id number] Left: [facility]NA [id number] / Implanted: Qty: 1 on 01/13/2018 by Adi Bustillo MD at [facility] [id number] / Select Secure Lead 3830-69cm - [id number] Left: [employer] 3830- 69CM / Implanted: Qty: 1 on 01/13/2018 by Adi Bustillo MD at [facility] / Optisense Lead - [id number] [facility] GE[place]NA / Implanted: Qty: 1 on 06/30/2018 by Adi Bustillo MD at [facility]. [id number] / 3830-59 Cm [employer] / Implanted: Qty: 1 on 12/13/2018 by Adi Bustillo MD at [facility] [id number] / Taperloc Complete Fem Stem - So Sz 15 - [id number] Right: HOLLIE [employer] 10/16/2027 [id number] / Implanted: Qty: 1 on 04/09/2019 by Cooper Galvez MD at [facility] Hip / [id number] Regenerex/Ringloc Ltd Hole Cup Size 58 - [id number] Right: HOLLIE [employer] 04/29/2026 [id number] / Implanted: Qty: 1 on 04/09/2019 by Cooper Galvez MD at [facility] Hip / [id number] Dual Mobility Acetabular Liner 46 G - [id number] Right: HOLLIE SATHYA 02/09/2029 [id number] / Implanted: Qty: 1 on 04/09/2019 by Cooper Galvez MD at [facility] Hip ASSOC / [id number] Biolox Ceramic Head Size 28 - [id number] Right: HOLLIE [employer] 2028 [id number] / Implanted: Qty: 1 on 04/09/2019 by Cooper Galvez MD at [facility] Hip / [id number] Ceramic Option Taper Sleeve Size Std - [id number] Right: HOLLIE [employer] 11/18/2027 [id number] / Implanted: Qty: 1 on 04/09/2019 by Cooper Galvez MD at [facility] Hip / [id number] Arcomxl Active Articulation Bearing 46mm - [id number] Right: HOLLIE SATHYA 03/05/2024 [id number] / Implanted: Qty: 1 on 04/09/2019 by Cooper Galvez MD at [facility] Hip ASSOC / [id number] documented as of this encounter Procedures Procedure Name Priority Date/Time Associated Comments Diagnosis PLATELET CHECK / Routine 08/14/2019 8:27 Peripheral T cell REVIEW AM EDT lymphoma of lymph nodes of head, face, and neck (HCC) CBC WITH DIFFERENTIAL STAT 08/14/2019 8:27 Peripheral T cell Results for this AM EDT lymphoma of lymph procedure are in nodes of head, the results face, and neck section. (HCC) COMPREHENSIVE Routine 08/14/2019 8:27 Peripheral T cell Results for this METABOLIC PANEL AM EDT lymphoma of lymph procedure are in nodes of head, the results face, and neck section. (HCC) documented in this encounter Results PLATELET CHECK / REVIEW (08/14/2019 8:27 AM EDT) Specimen Blood - Blood specimen (specimen) Performing Organization Address City/State/Zipcode Phone Number [facility] [address] [place] [address] CBC WITH DIFFERENTIAL (08/14/2019 8:27 AM EDT) WBC Count 5.52 4.23 - 9.07 K/uL [facility] RBC Count 3.93 (L) 4.30 - 5.89 M/UL [facility] Hemoglobin 12.1 (L) 13.7 - 17.5 g/dL [facility] Hematocrit 36.9 (L) 40.1 - 51.0 % [facility] MCV 93.9 (H) 79.0 - 92.2 FL [facility] MCH 30.8 25.7 - 32.2 PG [facility] MCHC 32.8 32.3 - 36.5 g/dL [facility] Platelet Count 118 (L) 163 - 337 K/uL [facility] MPV 10.8 9.4 - 12.4 FL [facility] RDW 12.6 11.6 - 14.4 % [facility] Neutrophil % 62.9 34.0 - 67.9 % [facility] Lymphocyte % 13.2 (L) 21.8 - 53.1 % [facility] Monocyte % 15.9 (H) 5.3 - 12.2 % [facility] Eosinophil % 6.5 0.8 - 7.0 % [facility] Basophil % 1.3 (H) 0.2 - 1.2 % [facility] nRBC % 0.0 0.0 - 0.2 % [facility] Neutrophil # 3.47 1.78 - 5.38 K/UL [facility] Lymphocyte # 0.73 (L) 1.32 - 3.57 K/UL [facility] Monocyte # 0.88 (H) 0.30 - 0.82 K/UL [facility] Eosinophil # 0.36 0.04 - 0.54 K/UL [facility] Basophil # 0.07 0.01 - 0.08 K/UL [facility] Immature Gran % 0.2 0.0 - 0.4 % [facility] Immature Gran # 0.01 0.00 - 0.03 K/uL [facility] NRBC # 0.00 0.00 - 0.12 K/uL [facility] Specimen Blood - Blood specimen (specimen) Performing Organization Address City/State/Zipcode Phone Number [facility] [address] [address] COMPREHENSIVE METABOLIC PANEL (08/14/2019 8:27 AM EDT) Sodium 138 134 - 145 mmol/L [facility] Potassium 4.6 3.5 - 5.1 mmol/L [facility] Chloride 107 98 - 107 mmol/L [facility] CO2 26 22 - 30 mmol/L [facility] Calcium 8.8 8.3 - 10.1 mg/dl [facility] Albumin 3.7 3.5 - 5.0 g/dl [facility] BUN 23 (H) 9 - 20 mg/dl [facility] Creatinine 1.0 0.8 - 1.5 mg/dl [facility] Glucose 124 (H) 70 - 99 mg/dl [facility] Total Protein 7.0 6.3 - 8.2 g/dl [facility] Total Bilirubin 0.6 0.0 - 1.1 MG/DL [facility] AST 32 17 - 59 U/L [facility] ALT 21 21 - 72 U/L [facility] Alkaline 108 40 - 150 U/L [facility] eGFR >60 See Interpretation [facility] Comment: Below ml/min/1.73ml GROUP Estimated GFR Interpretation: Sq LABORATORY Above 60ml/min/1.73m2 = Normal Renal Function 30-59 ml/min/1.73m2 = Stage 3 Chronic Kidney Disease 15-29 ml/min/1.73m2 = Stage 4 Chronic Kidney Disease Less than 15 ml/min/1.73m2 = Stage 5 Chronic Kidney Disease The GFR value is calculated using the Modification of Diet in Renal Disease ( MDRD) Study Equation which can be found at: https://www.kidney.org/content/hsch-tclta-xnleeyvl BUN/Creatinine 23 (H) 6 - 22 RATIO [facility]ORY Anion Gap 5 3 - 11 mmol/L [facility] A/G Ratio 1.1 0.8 - 2.0 ratio [facility] Specimen Blood - Blood specimen (specimen) Performing Organization Address City/State/Zipcode Phone Number [facility] [address] [id number] documented in this encounter Visit Diagnoses Diagnosis 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
--- NOTE | 2019-08-22 09:23 | ED ---
GI/ HPI - HPI Summary HPI Summary: This patient is a 74 year old M presenting to [facility] accompanied by a female roll sheeting cutter with a chief complaint of not being able to urinate since last night. Pt states he has to urinate but cannot. Pt is on chemotherapy for T cell Lymphoma. The patient rates the pain 4/10 in severity. Symptoms aggravated by nothing. Symptoms alleviated by nothing. Patient reports nausea, fever. Patient denies vomiting, cough, congestion, neck pain. Pt denies any kidney problems. He has a pacemaker. - History of Current Complaint Chief Complaint: EDUrogenitalProblems Time Seen by Provider: 08/22/19 09:14 Stated Complaint: UNABLE TO URINATE PER PT Hx Obtained From: Patient Onset/Duration: Started Days Ago - last night, Still Present Timing: Constant Severity: Moderate Current Severity: Moderate Pain Intensity: 4 Associated Signs and Symptoms: Positive: Nausea, Fever, Other: - positive - inability to urinate. negative - congestion, neck pain. Negative: Vomiting, Cough Aggravating Factor(s): Nothing Alleviating Factor(s): Nothing - Allergy/Home Medications Allergies/Adverse Reactions: Allergies Allergy/AdvReac Type Severity Reaction Status Date / Time ferrous sulfate Allergy Hives Verified 12/16/18 18:02 Home Medications: Home Medications Acetaminophen [Acetaminophen Extra Strength] 1,000 mg PO Q8HR 08/22/19 [History Confirmed 08/22/19] Allopurinol TAB* [Zyloprim 300 MG TAB*] 300 mg PO DAILY 08/22/19 [History Confirmed 08/22/19] Furosemide TAB* [Lasix TAB*] 40 mg PO DAILY PRN 08/22/19 [History Confirmed 04/04] Lisinopril TAB* [Prinivil TAB*] 10 mg PO DAILY 08/22/19 [History Confirmed 08/22] Ondansetron ODT TAB* [Zofran 4 MG Odt TAB*] 4 mg PO Q8H PRN 08/22/19 [History Confirmed 08/22/19] PARoxetine HCL TAB* [Paxil TAB*] 10 mg PO DAILY 08/22/19 [History Confirmed 04/04] PMH/Surg Hx/FS Hx/Imm Hx Previously Healthy: No Endocrine/Hematology History: Denies: Hx Diabetes, Hx Anemia Cardiovascular History: Reports: Hx Atrial Fibrillation, Hx Coronary Artery Disease - CHOLESTEROL CONTROL WITH SIMVASTATIN, Hx Hypertension - CONTROL WITH MEDS, Hx Pacemaker/ICD, Hx Valvular Heart Disease - AORTIC VALVE REPLACED, Other Cardiovascular Problems/Disorders - CHOLESTEROL CONTROL WITH MED Respiratory History: Reports: Hx Sleep Apnea - DOES NOT USE CPAP Denies: Other Respiratory Problems/Disorders GI History: Denies: Hx Jaundice, Other GI Disorders History: Reports: Other Problems/Disorders - PROSTATECTOMY Musculoskeletal History: Reports: Hx Arthritis - GENERALIZED MOSTLY KNEES AND FEET, Hx Back Problems, Other Musculoskeletal History - LOW BACK PAIN Sensory History: Reports: Hx Contacts or Glasses - READING GLASSES, Hx Hearing Aid - BILATERAL, Hx Hearing Problem Opthamlomology History: Reports: Hx Contacts or Glasses - READING GLASSES Neurological History: Reports: Other Neuro Impairments/Disorders - pain clinic pt Psychiatric History: Reports: Hx Anxiety - CONTROL WITH MEDS, Hx Depression Denies: Hx Panic Disorder - Cancer History Cancer Type, Location and Year: 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 2000 TONSILLECTOMY WITH UVULOPLASTY, [facility]. EPIGASTRIC HERNIA REPAIR, [facility]. 2004 ROBOTIC RADICAL PROSTATECTOMY, [facility]. 2010 OPEN RIGHT INGUINAL HERNIA REPAIR, [facility]. 2014 LUMBAR LAMINECTOMY, [facility]. 05/2016 RIGHT TOTAL KNEE REPLACEMENT, [facility]. pacemaker 11/2018 Hx Anesthesia Reactions: No Infectious Disease History: No Infectious Disease History: Denies: Traveled Outside the in Last 30 Days - Family History Known Family History: Negative: Diabetes - Social History Alcohol Use: Daily Alcohol Amount: couple of drinks per day Hx Substance Use: No Substance Use Type: Reports: None Hx Tobacco Use: Yes Smoking Status (MU): Former Smoker Type: Cigarettes Have You Smoked in the Last Year: No Review of Systems Positive: Fever ENT: Other - negative - congestion Negative: Cough Positive: Nausea. Negative: Vomiting Genitourinary: Other - positive - inability to urinate Musculoskeletal: Other - negative - neck pain All Other Systems Reviewed And Are Negative: Yes Physical Exam - Summary Physical Exam Summary: Constitutional: Well-developed, Well-nourished, Alert. (-) Distressed Skin: Warm, Dry HENT: Normocephalic; Atraumatic Eyes: Conjunctiva normal Neck: Musculoskeletal ROM normal neck. (-) JVD, (-) Stridor, (-) Tracheal deviation Cardio: Rhythm regular, rate normal, Heart sounds normal; Intact distal pulses; The pedal pulses are 2+ and symmetric. Radial pulses are 2+ and symmetric. Pacemaker in the left anterior chest wall that is non-tender. Pulmonary/Chest wall: Effort normal. (-) Respiratory distress, (-) Wheezes, (-) Rales Abd: Soft, Mild suprapubic tenderness, (-) Distension, (-) Guarding, (-) Rebound Musculoskeletal: (-) Edema Neuro: Alert, Oriented x3 Psych: Mood and affect Normal : Lower pelvic fullness, normal penis, no swelling or discharge. Triage Information Reviewed: Yes Vital Signs On Initial Exam: Initial Vitals Temp Pulse Resp BP Pulse Ox 100.9 F 97 18 158/76 97 08/22/19 09:03 08/22/19 09:03 08/22/19 09:03 08/22/19 09:03 08/22/19 09:03 Vital Signs Reviewed: Yes Procedures - Sedation Patient Received Moderate/Deep Sedation with Procedure: No Diagnostics - Vital Signs Vital Signs Temp Pulse Resp BP Pulse Ox 08/22/19 09:03 100.9 F 97 18 158/76 97 - Laboratory Result Diagrams: 08/23/19 04:35 08/23/19 04:35 Lab Statement: Any lab studies that have been ordered have been reviewed, and results considered in the medical decision making process. - Radiology CXR Radiology Interpretation Completed By: Radiologist Summary of Radiographic Findings: IMPRESSION: NO ACTIVE CARDIOPULMONARY DISEASE. These findings were reviewed by Dr. Armijo. Re-Evaluation - Re-Evaluation First Eval Re-Evaluation Time: 09:48 Comment: 400 cc of urine came out. GIGU Course/Dx - Course Course Of Treatment: This patient is a 74 year old M presenting to [facility] accompanied by a female roll sheeting cutter with a chief complaint of not being able to urinate since last night. Pt states he has to urinate but cannot. Pt is on chemotherapy for T cell Lymphoma. The patient rates the pain 4/10 in severity. Symptoms aggravated by nothing. Symptoms alleviated by nothing. Patient reports nausea, fever. Patient denies vomiting, cough, congestion, neck pain. Pt denies any kidney problems. He has a pacemaker. Physical exam shows lower pelvic fullness and mild suprapubic tenderness. exam is normal, normal penis, no swelling or discharge. There is a pacemaker in the left anterior chest wall that is non-tender. Lab results show absolute neuts 0.7. CXR IMPRESSION: NO ACTIVE CARDIOPULMONARY DISEASE. During ED course, pt was given Tylenol, Maxipime, and Lactated Ringers. At 1027, Dr. Daniel said that she agrees with everything I said. She said to admit the pt to the hospital. At 1033, Dr. Orona says she will wait for CXR results, then speak with Dr. Daniel before deciding on admission. At 1348, Dr. Orona agrees to admit pt. Dx is neutropenic fever. - Diagnoses Provider Diagnoses: Neutropenic fever - Physician Notifications Discussed Care Of Patient With: Brooklynn Daniel Time Discussed With Above Provider: 10:27 Instructed by Provider To: Other - Dr. Daniel said that she agrees with everything I said. She said to admit the pt to the hospital. At 1033, Dr. Orona says she will wait for CXR results, then speak with Dr. Daniel before deciding on admission. At 1348, Dr. Orona agrees to admit pt. Discharge ED - Sign-Out/Discharge Documenting (check all that apply): Patient Departure - admit - Discharge Plan Condition: Stable Disposition: ADMITTED TO [facility] - Billing Disposition and Condition Condition: STABLE Disposition: Admitted to [facility] - Attestation Statements Document Initiated by Izabella: Yes Documenting Scribe: Reggie Mcpherson Provider For Whom Izabella is Documenting (Include Credential): Dr. Dionte Armijo MD Scribe Attestation: Reggie Hernandez scribed for Dr. Dionte Armijo MD on 08/23/19 at 0816. Scribe Documentation Reviewed: Yes Provider Attestation: The documentation as recorded by the Reggie cuadra accurately reflects the service I personally performed and the decisions made by me, Dr. Dionte Armijo MD Status of Scribe Document: Viewed
[2019-08-22] MEDS ORDERED: Acetaminophen TAB* 325 MG PO ONE (09:28)
[2019-08-22] MEDS ORDERED: Lactated Ringers 1000 ML Bag* 1,000 ML IV ONE (09:28)
[2019-08-22 09:52] LABS: Urine Appearance Clear; Urine Bacteria Absent (Absent); Urine Bilirubin Negative (Negative); Urine Blood 1+ (Negative); Urine Color Yellow; Urine Glucose Negative (Negative); Urine Ketones Trace (Negative); Urine Nitrite Negative (Negative); Urine Protein 1+(30 mg/dL) (Negative); Urine Red Blood Cell Trace(0-2/hpf) (Absent); Urine Specific Gravity 1.017 (1.010-1.030); Urine Squamous Epithelial Cell Present (Absent); Urine Urobilinogen Negative (Negative); Urine White Blood Cell Trace(0-5/hpf) (Absent)
[2019-08-22 10:14] LABS: ABS Eosinophils 0.1 10^3/ul (0-0.6); ABS Lymphocytes 0.1 10^3/ul (1.0-4.8); ABS Monocytes 0.2 10^3/ul (0-0.8); ABS Neutrophils 0.7 10^3/ul (1.5-7.7); Eosinophil % 6.3 %; Hematocrit 34 % (42-52); Hemoglobin 11.6 g/dL (14.0-18.0); Lymphocyte % 12.6 %; Mean Corpuscular HGB Conc 34 g/dL (31-36); Mean Corpuscular Hemoglobin 31 pg (27-31); Mean Corpuscular Volume 92 fL (80-94); Mean Platelet Volume 9.6 fL (7.4-10.4); Nucleated Red Blood Cells % 0.1; Platelet Count 23 10^3/uL (150-450); Red Blood Count 3.72 10^6 /uL (4.18-5.48); Red Cell Distribution Width 13 % (10-15); White Blood Count 1.1 10^3/uL (3.5-10.8)
[2019-08-22] MEDS ORDERED: Cefepime(*) 2 GM in NS 0.9% 50 ML* 50 ML IVPB ONE (10:22)
[2019-08-22 10:27] LABS: BUN/Creatinine Ratio 16.1 (8-20); Calcium 8.7 mg/dL (8.6-10.3); EGFR Non-African American 64.4 (>60); Potassium 4.2 mmol/L (3.5-5.0)
[2019-08-22] MEDS ORDERED: Cefepime 2 GM in Dextrose(*) 2 GM/50 ML BAG IV ONE (10:45)
[2019-08-22 11:59] LABS: Influenza A Molecular NEGATIVE (Negative); Influenza B Molecular NEGATIVE (Negative)
[2019-08-22] MEDS ORDERED: NS 0.9% 1000 ML** 1,000 ML IV SCH ×2 (15:45→23:13)
[2019-08-22] MEDS: Acetaminophen TAB* 325 MG PO PRN (16:13)
[2019-08-22 16:27] LABS: Magnesium 1.7 mg/dL (1.9-2.7)
[2019-08-22] MEDS ORDERED: Magnesium Sulfate 2 GM IV* 2 GM/50 ML BAG IVPB ONE (17:38)
--- NOTE | 2019-08-22 19:10 | HP ---
CC: Dr. Johnson at [facility]; Dr. Reynolds * HISTORY AND PHYSICAL: DATE OF ADMISSION: 08/22/19 PROVIDER: Zulma Aguilar NP PRIMARY CARE PROVIDER: Dr. Reynolds. ATTENDING PHYSICIAN WHILE IN THE HOSPITAL: Dr. Rosemary Orona * (dictated by Zulma Aguilar NP). CHIEF COMPLAINT: 1. Fever. 2. Inability to urinate. HISTORY OF PRESENT ILLNESS: Mr. Israel is a 74-year-old male with a past medical history significant for history of atrial fibrillation, on chronic Xarelto; coronary artery disease; hypertension; hyperlipidemia; T-cell lymphoma , currently receiving chemotherapy; history of Hodgkin's disease; lymphoma in his 20s; history of prostate cancer, who presented to the emergency room with complaints of unable to urinate. The patient came in complaining, he was unable to urinate since yesterday. The patient reinforced that he had chills yesterday and did present with a fever while in the emergency room. He does report that he is currently receiving chemotherapy for T-cell lymphoma, which his first dose of chemo was 1 week ago, Tuesday. The patient does report that he has been feeling well since then. He has been eating and drinking. Denies any vomiting or diarrhea. He denies any chest pain or edema, cough, hemoptysis , shortness of breath, no nausea, vomiting, diarrhea or abdominal pain. He denies any gross hematuria. He does report unable to urinate. Denies any focal weakness, sensory loss, visual complaints, dysphagia, arthralgias, myalgias, rashes, lesions, open sores, psychosis or anxiety due to his inability to urinate. While in the emergency room, the patient had routine lab work drawn. He was found to be neutropenic and thrombocytopenic with a fever of 102. Given these findings, the patient will be admitted for neutropenic fever. PAST MEDICAL HISTORY: Significant for: 1. History of atrial fibrillation status post ablation, on chronic Xarelto. 2. Coronary artery disease. 3. Hypertension. 4. Hyperlipidemia. 5. T-cell lymphoma. 6. Hodgkin's disease lymphoma in his 20s. 7. History of prostate cancer. PAST SURGICAL HISTORY: 1. Aortic valve replacement. 2. Tonsillectomy. 3. Prostatectomy. 4. Hernia repair. 5. Lumbar laminectomy. 6. Right total knee replacement. 7. Pacemaker. 8. Right hip arthroplasty. 9. Mediport placement. HOME MEDICATIONS: Include: 1. Simvastatin 10 mg p.o. daily. 2. Xarelto 20 mg p.o. daily. 3. Paroxetine 10 mg p.o. daily. 4. Zofran 4 mg p.o. q.8 hours p.r.n. 5. Lisinopril 10 mg p.o. daily. 6. Allopurinol 300 mg p.o. daily. 7. Furosemide. 8. Tylenol 1000 mg p.o. q.8 hours as needed. ALLERGIES: No known drug allergies. FAMILY HISTORY: Father with hypertension. No reported history of diabetes. Mother at the age of 92 of old age. Father at the age of 72 from prostate cancer. SOCIAL HISTORY: The patient denies any tobacco or illicit drug use. He does report occasional alcohol use. He is . Surrogate decision maker in the event he is unable to make his own decision is his . He is a full code. REVIEW OF SYSTEMS: A 14-point review of systems was completed. All pertinent positives were as mentioned in the HPI, otherwise were negative. PHYSICAL EXAMINATION GENERAL: At this time, Mr. Israel is alert and oriented resting on the stretcher in the emergency room. He is in no any acute distress. VITAL SIGNS: Temperature 101.4, heart rate is 88, respirations are 16, O2 saturation is 95%, blood pressure 135/59. HEENT: Head is atraumatic, normocephalic. Eyes: EOMs are intact. Sclerae anicteric and not pale. Oral mucosa appeared to be moist. NECK: Supple. LUNGS: Clear to auscultation bilaterally. No wheezes, rales, or rhonchi. CARDIAC: S1, S2. Regular rate and rhythm. No murmurs, rubs, or gallops. ABDOMEN: Soft and nontender. Bowel sounds are present x4. EXTREMITIES: He is able to move all 4 extremities. There is no clubbing or cyanosis. : He has a Lockwood catheter in place with dark nikia urine. NEUROLOGIC: He is awake, alert, and oriented x3. Speech is clear. Thought process is intact. There is no gross focal deficits. SKIN: Intact. Port site is without redness, edema, or swelling. DIAGNOSTIC STUDIES/LAB DATA: WBCs were 1.1, RBCs 3.72, hemoglobin 11.6, hematocrit 34, platelet count 23, absolute neutrophils 0.7. Venous blood gas pH of 7.42, pCO2 is 43, pO2 was less than 38, HCO3 was 25.4, O2 saturation was 32.1. Sodium 132, potassium 4.2, chloride 99, carbon dioxide was 28, anion gap was 5, BUN was 18, creatinine 1.12, glucose was 123, lactic acid was 1.3, calcium 8.7. Urine was within normal limits with the exception of urine protein , ketones. Urine protein was 1+, ketones were trace, and blood was 1+ and squamous epithelial cells were present. Flu and B were both negative. He had a chest x-ray, radiologist's impression: No active cardiopulmonary disease. ASSESSMENT AND PLAN: Mr. Israel is a 74-year-old male with a past medical history significant for history of atrial fibrillation, on chronic Xarelto; coronary artery disease; hypertension; hyperlipidemia; T-cell lymphoma; history of Hodgkin's disease; lymphoma; and prostate cancer, who presented to the emergency room with complaints of inability to urinate and fever. He will be admitted for: 1. Neutropenic fever. He meets SIRS criteria with tachycardia, temperature of 101.4 and white count of 1.1. He does not have a clear source of infection at this time. Spoke to Dr. Daniel from [facility], who recommended contacting the patient's personal oncologist as his symptoms appears to be related to neutropenic fever. I did speak to Dr. Johnson from [facility], who recommended the patient be placed on cefepime 2 grams q.8 hours. He recommended that the patient be afebrile 24 to 48 hours prior to converting him to oral antibiotics. The patient was placed on neutropenic precautions, repeat CBC and BMP will be completed in the a.m. We will continue antibiotics as per his recommendations. The patient will be placed on normal saline at 75 cc per hour. 2. Urinary retention. Patient initially presented with the inability to urinate. Lockwood catheter was placed in the ER, draining dark urine. Suspect this could be related to dehydration as pre catheter bladder scan only showed 275cc of urine in the bladder. IV fluid were given in the ER, lockwood catheter with dark nikia urine, culture sent- results pending. 3. Atrial fibrillation. The patient has a history of atrial fibrillation. He is currently in sinus rhythm. The patient is currently thrombocytopenic with a platelet count of 23. I am going to hold the Xarelto. I also spoke to his personal oncologist Dr. Johnson who recommended holding Xarelto until his platelet count is above 50,000. 4. History of hypertension. The patient does take lisinopril at home. He was mildly hypotensive on arrival to the emergency room with a blood pressure of 92/ 57. I will hold his lisinopril at this time and we will continue to monitor his vital signs. Will resume lisinopril as able. Will give IV fluids overnight. 5. Hyperlipidemia. He will continue on his simvastatin as previously prescribed. 6. Thrombocytopenia. The patient is thrombocytopenic with a platelet count of 23. We will monitor him for signs of bleeding and hold his Xarelto. It was recommended by his Oncologist-Cloth Roll Winder that Xarelto will be held until his platelet count is above 50,000. 7. FEN: He can have a regular diet. 8. Code status: He is a full code. 9. DVT prophylaxis: He will be placed on SCDs as chemical DVT prophylaxis is contraindicated at this time due to the patient's platelet level of 23. I am going to hold his Xarelto. TIME SPENT: Time spent on this admission was 60 minutes, greater than half that time was spent at the bedside reviewing events leading thus far to his hospitalization, performing physical exam, and reviewing my plan of care. I have discussed this with my attending, Dr. Rosemary Orona; she is in agreement with my plan. ZULMA AGUILAR, AUDIO VISUAL PROJECT MANAGER [id number]/[facility] #: [id number] JOHNNY
[2019-08-22] MEDS: Cefepime 2 GM in Dextrose(*) 2 GM/50 ML BAG IV SCH (21:49)
[2019-08-23] MEDS: Cefepime 2 GM in Dextrose(*) 2 GM/50 ML BAG IV SCH ×3 (04:18→20:04)
[2019-08-23] MEDS: Acetaminophen TAB* 325 MG PO PRN ×2 (04:24→20:04)
[2019-08-23 05:35] LABS: ABS Eosinophils 0.1 10^3/ul (0-0.6); ABS Lymphocytes 0.2 10^3/ul (1.0-4.8); ABS Monocytes 0.2 10^3/ul (0-0.8); ABS Neutrophils 1.1 10^3/ul (1.5-7.7); Eosinophil % 3.8 %; Hematocrit 28 % (42-52); Hemoglobin 9.6 g/dL (14.0-18.0); Lymphocyte % 11.9 %; Mean Corpuscular HGB Conc 34 g/dL (31-36); Mean Corpuscular Hemoglobin 31 pg (27-31); Mean Corpuscular Volume 93 fL (80-94); Mean Platelet Volume 9.4 fL (7.4-10.4); Platelet Count 20 10^3/uL (150-450); Red Blood Count 3.07 10^6 /uL (4.18-5.48); Red Cell Distribution Width 13 % (10-15); White Blood Count 1.5 10^3/uL (3.5-10.8)
[2019-08-23 05:40] LABS: INR 1.52 (0.82-1.09)
[2019-08-23 05:49] LABS: BUN/Creatinine Ratio 19.2 (8-20); Calcium 7.9 mg/dL (8.6-10.3); EGFR African American 84.9 (>60); EGFR Non-African American 70.2 (>60); Potassium 4.2 mmol/L (3.5-5.0)
[2019-08-23] MEDS: Atorvastatin* 10 MG TAB PO SCH (08:28)
[2019-08-23] MEDS: PARoxetine HCL TAB* 20 MG PO SCH (08:30)
--- NOTE | 2019-08-23 15:06 | PN ---
Subjective Date of Service: 08/23/19 Interval History: HOSPITALIST PROGRESS NOTE Patient seen and examined at bedside. Care reviewed and d/w Bette Feldman RN. He feels improved today. After Palacios catheter placement he had significant relief of his discomfort. Denies N/V/D, tolerating diet well. Family History: Unchanged from Admission Social History: Unchanged from Admission Past Medical History: Unchanged from Admission Objective Active Medications: Acetaminophen (Tylenol Tab*) 650 mg PO Q4H PRN PRN Reason: MILD PAIN or TEMP > 100.4 Last Admin: 08/23/19 04:24 Dose: 650 mg Atorvastatin Calcium (Lipitor*) 5 mg PO DAILY [facility] Last Admin: 08/23/19 08:28 Dose: 5 mg Cefepime HCl (Maxipime 2 Gm In Dextrose Duplex (*)) 2 gm in 50 mls @ 100 mls/ hr IV Q8H [facility] Last Admin: 08/23/19 12:22 Dose: 100 mls/hr Sodium Chloride (Ns 0.9% 1000 Ml) 1,000 mls @ 100 mls/hr IV PER RATE [facility] Paroxetine HCl (Paxil Tab*) 20 mg PO DAILY [facility] Last Admin: 08/23/19 08:30 Dose: 20 mg Vital Signs - 8 hr 08/23/19 08/23/19 08/23/19 07:32 08:13 08:40 Temperature 97.6 F 97.6 F Pulse Rate 71 71 Respiratory 18 18 18 Rate Blood Pressure 94/50 94/50 (mmHg) O2 Sat by Pulse 96 96 Oximetry 08/23/19 11:15 Temperature 98.7 F Pulse Rate 79 Respiratory 16 Rate Blood Pressure 142/56 (mmHg) O2 Sat by Pulse 98 Oximetry Oxygen Devices in Use Now: None Appearance: Pleasant gentleman lying in bed in NAD Eyes: No Scleral Icterus Ears/Nose/Mouth/Throat: Mucous Membranes Moist Neck: Trachea Midline Respiratory: Symmetrical Chest Expansion and Respiratory Effort, Clear to Auscultation Cardiovascular: RRR - Normal S1 and S2 Abdominal: NL Sounds; No Tenderness; No Distention Neurological: Alert and Oriented x 3, NL Muscle Strength and Tone Result Diagrams: 08/23/19 04:35 08/23/19 04:35 Microbiology and Other Data: Microbiology 08/22/19 09:54 Aerobic Blood Culture - Preliminary Blood Venous No Growth Day 1 Anaerobic Blood Culture - Preliminary No Growth Day 1 08/22/19 09:38 Urine Culture - Final Urine No Growth (<1,000 CFU/mL) 08/22/19 09:38 Aerobic Blood Culture - Preliminary Blood Venous No Growth Day 1 Anaerobic Blood Culture - Preliminary No Growth Day 1 Assess/Plan/Problems-Billing Assessment: Mr Israel is a 74yo m with PMH of Afib s/p ablation (on Xarelto), s/p pacer, CAD, HTN, HLD, Hodgkin's disease in his 20s, prostate CA s/p prostatectomy, s/p AVR (cadaveric valve, [facility] 1995), T-cell lymphoma undergoing chemotherapy, who presented to ED with fever, found to have neutropenic fever. - Patient Problems (1) Neutropenic fever Comment: - ANC up to 1.1. - Plan to continue Cefepime IV until afebrile for 48h. - Cultures so far show no growth. (2) Atrial fibrillation Comment: - His Oncologist recommended holding Xarelto until platelets >50k. (3) Urinary retention Comment: - C/o difficulty urinating on admission, Palacios placed with 270ml residual. - He is status post prostatectomy in 2004. - D/w Urology - plan to remove Palacios in AM for trial of spontaneous void. If not able to void and unable to replace Palacios, will consult Urology. (4) HTN (hypertension) Comment: - BP is trending up - will resume Lisinopril is SBP sustains >120. (5) DVT prophylaxis Comment: - SCDs. - No pharmacological prophylaxis due to thrombocytopenia. (6) Full code status Status and Disposition: Inpatient. Anticipate d/c in AM if remains afebrile.
--- NOTE | 2019-08-23 17:17 | ECHO ---
*[facility]* [place] [address] Fax #: [phone] Transthoracic Echocardiogram Patient: Tom Israel : 1945 Study Date: 08/23/2019 Age: 74 Gender: M HR: 79 bpm Height: 69 in /175.3 cm BSA: 1.98 m^2 Weight: 179.6 lb /81.6 kg BMI: 26.6 kg/m^2 *Director Weights And Measures: * Nelli Varghese [facility] *Referring Physician: * Zulma Aguilar *Reading Physician: * Roman Steward MD Indications: Fever. History: T-cell lymphoma, Hodgkins, chemotherapy. Atrial fibrillation. Coronary artery disease. Risk factors: Hypertension. Dyslipidemia. Labs, prior tests, procedures, and surgery: Permanent pacemaker system implantation. Aortic valve replacement. Conclusions Summary: - Left ventricle: Systolic function is normal. The estimated ejection fraction is 55-60%. Systolic function is unchanged from the study of September 2006. - Right ventricle: The cavity size is mildly dilated. Pacer wire noted in the right ventricle. Systolic function is mildly reduced. - Ventricular septum: There is abnormal interventricular septal wall motion consistent with an RV pacemaker. - Right atrium: The atrium is mildly to moderately dilated. - Mitral valve: The Mitral valve annulus appears calcified. The leaflets are mildly thickened. The findings are consistent with mild stenosis. Stenosis severity has increased in comparison with the study of September 2006. The valve area is 2.1 cm^2. The valve area by pressure half-time is 2.8 cm^2. - Aortic valve: There is a bioprosthetic valve. The 2d and doppler findings are c/w normal valve function. The mean systolic gradient is 7.0 mm Hg. The LVOT to aortic valve VTI ratio is 0.5. The valve area by the velocity-time integral method is 1.70 cm^2. The valve area by the peak velocity method is 1.70 cm^2. - Tricuspid valve: There is moderate regurgitation. - Pulmonic valve: There is trace to mild regurgitation. Recommendations: No obvious vegetations. Consider transesophageal echocardiogram if there is a high clinical suspicion for subacute bacterial endocarditis. Study data: Transthoracic echocardiogram. Procedure: Transthoracic echocardiography was performed. Image quality was good. Complete 2D, spectral Doppler, and color flow Doppler. Location: Bedside. Patient status: Inpatient. Patient room number: 422. The previous study was not available, so comparison is made to the report of September 2006. Rhythm: Paced rhythm. Findings Left ventricle: The cavity size is normal. Wall thickness is mildly to moderately increased. Systolic function is normal. The estimated ejection fraction is 55-60%. Systolic function is unchanged from the study of September 2006. Wall motion is normal; there are no regional wall motion abnormalities. Left ventricular diastolic function parameters are indeterminate. Right ventricle: The cavity size is mildly dilated. Pacer wire noted in the right ventricle. Systolic function is mildly reduced. Ventricular septum: There is abnormal interventricular septal wall motion consistent with an RV pacemaker. Left atrium: The atrium is normal in size. Right atrium: The atrium is mildly to moderately dilated. Pacer wire noted in right atrium. Catheter is noted in right atrium. Mitral valve: The Mitral valve annulus appears calcified. The leaflets are mildly thickened. The findings are consistent with mild stenosis. Stenosis severity has increased in comparison with the study of September 2006. There is trace regurgitation. Aortic valve: There is a bioprosthetic valve. The 2d and doppler findings are c/w normal valve function. The leaflets are normal thickness. Cusp separation is normal. There is no evidence of a vegetation. Stenosis severity has increased in comparison with the study of September 2006. There is mild regurgitation. Tricuspid valve: The leaflets are normal thickness. There is no evidence of a vegetation. There is no evidence of stenosis. There is moderate regurgitation. Pulmonic valve: The leaflets are normal thickness. There is no evidence of a vegetation. There is no evidence of stenosis. There is trace to mild regurgitation. Aorta: The aortic root appears normal. The aortic arch appears normal. Pericardium: There is no significant pericardial effusion. Pulmonary arteries: The main pulmonary artery is normal-sized. Systolic pressure is within the normal range. Systemic veins: Inferior vena cava: The vessel is normal in size. There is (>= 50%) respiratory change in the IVC dimension. Measurements Left ventricle Value Ref Aortic valve continued Value Ref HANNAH, LAX 4.5 cm 4.2 - 5.8 Mean grad, S 7.0 mm Hg ----- ESD, LAX 3.3 cm 2.5 - 4.0 Peak grad, S 13.0 mm Hg ----- FS, LAX 28 % 25 - 43 LVOT/AV, VTI ratio 0.5 ----- PW, ED, LAX (H) 1.2 cm 0.6 - 1.0 GREGORY, VTI 1.70 cm^2 ----- EF 55 % 52 - 72 GREGORY, Vmax 1.70 cm^2 ----- E', lat windy, TDI (L) 8.6 cm/sec >=10.0 E/e', lat windy, 14 Mitral valve Value Ref TDI Peak E 1.23 m/sec ----- E', med windy, TDI (L) 4.7 cm/sec >=7.0 Peak A 0.54 m/sec - ---- E/e', med windy, 26 Decel time 129 ms ---- - TDI PHT 79 ms ----- E', avg, TDI 6.7 cm/sec Mean grad, D 2.0 mm Hg ---- - E/e', avg, TDI (H) 18 <=14 Peak grad, D 6.0 mm Hg - ---- Peak E/A ratio 2.3 ----- LVOT Value Ref MVA, PHT 2.8 cm^2 ----- Diam, S 2.00 cm Area 3.1 cm^2 Pulmonic valve Value Ref Peak richard, S 0.99 m/sec Peak v, S 0.96 m/sec ----- VTI, S 19.0 cm Peak grad, S 4.0 mm Hg ----- Mean grad, S 2 mm Hg Tricuspid valve Value Ref Ventricular septum Value Ref TR peak v 2.8 m/sec <=2.8 IVS, ED (H) 1.4 cm 0.6 - 1.0 Peak RV-RA grad, S 31 mm Hg ----- Right ventricle Value Ref Aortic root Value Ref HANNAH, LAX 3.5 cm Root diam 2.5 cm <4.1 HANNAH minor ax, A4C (H) 3.9 cm 1.9 - 3.5 mid Ascending aorta Value Ref Pressure, S 34 mm Hg AAo AP diam, S 2.4 cm ----- Left atrium Value Ref Aortic arch Value Ref AP dim, ES (H) 4.10 cm 3.00 - Arch diam 2.9 cm ----- 4.00 ML dim, A4C 4.2 cm Decending aorta Value Ref SI dim, A4C 5.1 cm Abhishek peak richard 0.85 m/sec ----- Vol/bsa, ES, A/L 27 ml/m^2 16 - 34 Pulmonary artery Value Ref Right atrium Value Ref Pressure, S 30.0 mm Hg ----- SI dim, ES (H) 5.8 cm 3.4 - 5.3 ML dim, ES, A4C (H) 5.1 cm 2.6 - 4.4 Inferior vena cava Value Ref Estimated RAP 3 mm Hg Diam 2.0 cm ----- Aortic valve Value Ref Windy diam, ED 2.0 cm Peak v, S 1.8 m/sec VTI, S 35.0 cm Legend: (L) and (H) martinez values outside specified reference range. Prepared and electronically signed by Roman Steward MD 08/23/2019 17:17
[2019-08-23] MEDS ORDERED: Melatonin 3 MG TAB PO PRN (22:15)
[2019-08-24] MEDS: Cefepime 2 GM in Dextrose(*) 2 GM/50 ML BAG IV SCH ×3 (04:03→20:12)
[2019-08-24 06:07] LABS: BUN/Creatinine Ratio 15.2 (8-20); EGFR African American 97.9 (>60); EGFR Non-African American 80.9 (>60); Potassium 3.9 mmol/L (3.5-5.0)
[2019-08-24 06:14] LABS: Hematocrit 29 % (42-52); Hemoglobin 9.6 g/dL (14.0-18.0); Mean Corpuscular HGB Conc 34 g/dL (31-36); Mean Corpuscular Hemoglobin 31 pg (27-31); Mean Corpuscular Volume 93 fL (80-94); Mean Platelet Volume 11.2 fL (7.4-10.4); Platelet Count 38 10^3/uL (150-450); Red Blood Count 3.08 10^6 /uL (4.18-5.48); Red Cell Distribution Width 13 % (10-15); White Blood Count 2.1 10^3/uL (3.5-10.8)
[2019-08-24 07:30] LABS: ABS Eosinophils 0.1 10^3/ul (0-0.6); ABS Lymphocytes 0.2 10^3/ul (1.0-4.8); ABS Monocytes 0.3 10^3/ul (0-0.8); ABS Neutrophils 1.5 10^3/ul (1.5-7.7); Eosinophil % 3.6 %; Lymphocyte % 9.8 %; Nucleated Red Blood Cells % 0.7
--- NOTE | 2019-08-24 09:56 | PN ---
Subjective Date of Service: 08/24/19 Interval History: No c/o. Family History: Unchanged from Admission Social History: Unchanged from Admission Past Medical History: Unchanged from Admission Objective Active Medications: Acetaminophen (Tylenol Tab*) 650 mg PO Q4H PRN PRN Reason: MILD PAIN or TEMP > 100.4 Last Admin: 08/23/19 20:04 Dose: 650 mg Atorvastatin Calcium (Lipitor*) 5 mg PO DAILY [facility] Last Admin: 08/23/19 08:28 Dose: 5 mg Cefepime HCl (Maxipime 2 Gm In Dextrose Duplex (*)) 2 gm in 50 mls @ 100 mls/ hr IV Q8H [facility] Last Admin: 08/24/19 04:03 Dose: 100 mls/hr Lisinopril (Prinivil Tab*) 5 mg PO DAILY [facility] Melatonin (Melatonin) 6 mg PO BEDTIME PRN PRN Reason: FOR SLEEP Last Admin: 08/23/19 22:22 Dose: 6 mg Paroxetine HCl (Paxil Tab*) 20 mg PO DAILY [facility] Last Admin: 08/23/19 08:30 Dose: 20 mg Vital Signs - 8 hr 08/24/19 08/24/19 03:15 07:36 Temperature 97.6 F 97.7 F Pulse Rate 71 72 Respiratory 16 20 Rate Blood Pressure 121/63 134/71 (mmHg) O2 Sat by Pulse 95 96 Oximetry Oxygen Devices in Use Now: None Appearance: Alert, partlu up in bed. In good spirits. Looks comfortable. Eyes: No Scleral Icterus Respiratory: Symmetrical Chest Expansion and Respiratory Effort, Clear to Auscultation, Clear to Percussion Cardiovascular: RRR, No Edema, - - soft systolic murmur across precordium Extremities: No Edema, No Clubbing, Cyanosis, - Skin: No Rash or Ulcers, No Nodules or Sclerosis, - Neurological: Alert and Oriented x 3, NL Sensation Result Diagrams: 08/24/19 05:19 08/24/19 05:19 Microbiology and Other Data: Microbiology 08/22/19 09:54 Aerobic Blood Culture - Preliminary Blood Venous No Growth Day 1 Anaerobic Blood Culture - Preliminary No Growth Day 1 08/22/19 09:38 Urine Culture - Final Urine No Growth (<1,000 CFU/mL) 08/22/19 09:38 Aerobic Blood Culture - Preliminary Blood Venous No Growth Day 1 Anaerobic Blood Culture - Preliminary No Growth Day 1 Assess/Plan/Problems-Billing Assessment: Mr Israel is a 74yo m with PMH of Afib s/p ablation (on Xarelto), s/p pacer, CAD, HTN, HLD, Hodgkin's disease in his 20s, prostate CA s/p prostatectomy, s/p AVR (cadaveric valve, [facility] 1995), T-cell lymphoma undergoing chemotherapy, who presented to ED with fever, found to have neutropenic fever. - Patient Problems (1) Neutropenic fever Current Visit: Yes Status: Acute Code(s): D70.9 - NEUTROPENIA, UNSPECIFIED; R50.81 - FEVER PRESENTING WITH CONDITIONS CLASSIFIED ELSEWHERE SNOMED Code(s) : 035608431 Comment: - ANC up to 1.5 on 08/24/19. - Plan to continue Cefepime IV until afebrile for 48h. Temp 101.0 19:15 hrs 08/23/19. - Cultures so far show no growth. (2) Atrial fibrillation Current Visit: Yes Status: Acute Code(s): I48.91 - UNSPECIFIED ATRIAL FIBRILLATION SNOMED Code(s): 72859593 Comment: His Oncologist recommended holding Xarelto until platelets >50k. ? paced rhythm vs NSR with RBBB 08/24/19. Note hx PPM, tissue AVR. (3) HTN (hypertension) Current Visit: Yes Status: Acute Code(s): I10 - ESSENTIAL (PRIMARY) HYPERTENSION SNOMED Code(s): 59734080 Comment: Resume Lisinopril at half his home dose on 08/24. (4) Urinary retention Current Visit: Yes Status: Acute Code(s): R33.9 - RETENTION OF URINE, UNSPECIFIED SNOMED Code(s): 997608686 Comment: - C/o difficulty urinating on admission, Palacios placed with 270ml residual. - He is status post prostatectomy for prostate ca in 2004. Remove Palacios 08/24 in AM, PVR by bladder scan requested. (5) HLD (hyperlipidemia) Current Visit: Yes Status: Acute Code(s): E78.5 - HYPERLIPIDEMIA, UNSPECIFIED SNOMED Code(s): 26979124 Comment: Continue statin, uses simvastatin at home. Status and Disposition: Inpatient. Anticipate d/c in AM if remains afebrile.
[2019-08-24] MEDS: PARoxetine HCL TAB* 20 MG PO SCH (09:58)
[2019-08-24] MEDS: Atorvastatin* 10 MG TAB PO SCH (09:59)
[2019-08-24] MEDS: Lisinopril TAB* 5 MG PO SCH (09:59)
[2019-08-25] MEDS: Cefepime 2 GM in Dextrose(*) 2 GM/50 ML BAG IV SCH ×2 (03:57→12:27)
[2019-08-25 05:11] LABS: Hematocrit 27 % (42-52); Hemoglobin 9.5 g/dL (14.0-18.0); Mean Corpuscular HGB Conc 35 g/dL (31-36); Mean Corpuscular Hemoglobin 32 pg (27-31); Mean Corpuscular Volume 92 fL (80-94); Mean Platelet Volume 9.8 fL (7.4-10.4); Platelet Count 68 10^3/uL (150-450); Red Blood Count 2.99 10^6 /uL (4.18-5.48); Red Cell Distribution Width 13 % (10-15); White Blood Count 4.4 10^3/uL (3.5-10.8)
[2019-08-25 05:39] LABS: ABS Eosinophils 0.1 10^3/ul (0-0.6); ABS Lymphocytes 0.3 10^3/ul (1.0-4.8); ABS Monocytes 0.5 10^3/ul (0-0.8); ABS Neutrophils 3.5 10^3/ul (1.5-7.7); Eosinophil % 2.3 %; Lymphocyte % 5.8 %; Nucleated Red Blood Cells % 0.1
[2019-08-25] MEDS: Atorvastatin* 10 MG TAB PO SCH (08:37)
[2019-08-25] MEDS: Lisinopril TAB* 5 MG PO SCH ×2 (08:38→12:08)
[2019-08-25] MEDS: PARoxetine HCL TAB* 20 MG PO SCH (08:38)
[2019-08-25] MEDS ORDERED: Lisinopril TAB* 5 MG PO ONE (12:02)
[2019-08-25 12:29] VITALS: BP 170/82
--- NOTE | 2019-08-25 22:38 | DS ---
DISCHARGE SUMMARY: DATE OF ADMISSION: 08/22/19 DATE OF DISCHARGE: 08/25/19 ADMITTING PROVIDER: Zulma Aguilar NP. PRIMARY CARE PHYSICIAN: Dr. Yung Reynolds. OUTPATIENT BRAND MARKETING SPECIALIST/ONCOLOGIST: Dr. Jase Johnson ([place]). ATTENDING PHYSICIAN ON THE DAY OF DISCHARGE: Lucius Machuca MD. CHIEF COMPLAINT: Fever and inability to urinate. PRINCIPAL DIAGNOSIS: Neutropenic fever in the setting of recent chemotherapy initiation(no source of infection identified; acute urinary retention. HISTORY OF PRESENT ILLNESS/HOSPITAL COURSE: Tom Israel is a 74-year-old male with past medical history of chronic atrial fibrillation (on Xarelto), coronary artery disease, hypertension, hyperlipidemia, Hodgkin's lymphoma in his 20s, prostate cancer, recent T-cell lymphoma for which he a week prior to admission started chemotherapy (brentuximab, doxorubicin, and Cytoxan) in addition to allopurinol. Please see H and P for full details but briefly, he developed inability to urinate and had a fever of 102. Initial evaluation included absolute neutrophil count of 700. A [place] catheter was placed. There was no evidence of infection on urinalysis or urine culture. Blood cultures have been no growth for 2 and 3 days respectively. He had a transthoracic echocardiogram, which demonstrated no evidence of vegetation. He defervesced. He was placed on cefepime 2 g q.8 hours and a consultation to Dr. Johnson was made who recommended keeping that medication until the patient was afebrile for 24 to 48 hours. Last fever was 7 p.m. on 08/23/19, two days prior to discharge. He was able to remove the Pal[place]ios and void on his own on the day prior to discharge. He was feeling well with no focal signs of infection and be discharged with a few more days of oral antibiotics and close followup with his outpatient providers is recommended. His course was also complicated by thrombocytopenia with a gema of 20 on 08/23/19, now improved to 68 and his Xarelto was held as long as below 50. It was recommended that he would start that the day after discharge for his chronic atrial fibrillation. DISCHARGE MEDICATIONS: Include: 1. Xarelto 20 mg p.o. daily (please restart it on 08/26/19). 2. Paxil 10 mg daily. 3. Zofran 4 mg p.o. q.6 hours p.r.n. 4. Lisinopril 10 mg p.o. daily. 5. Levaquin 750 mg p.o. daily for 3 tabs (new). 6. Lasix 40 mg p.o. daily. 7. Allopurinol 300 mg p.o. daily. 8. Acetaminophen 1000 mg p.o. q.8 hours p.r.n. 9. Simvastatin 10 mg p.o. daily. DISCHARGE DIET: Heart healthy, unchanged. DISPOSITION: To home. CONDITION: Improved. FOLLOWUP: He is to follow up with Dr. Yung Reynolds within 7 [address] of discharge and [address] Johnson as previously scheduled. TIME SPENT ON DISCHARGE: Thirty five minutes. [id number]/CPS #: [id number]
== END 2019-08-25 12:10 | disposition home or self-care (01) | DRG 809 ==
LOC: ED 09:02 → MED 16:22
PROVIDERS: ADMIT Internal Medicine; ATTEND Internal Medicine
PROC: 0T9B70Z Drainage of Bladder with Drainage Device, Via Natural or Artificial Opening (ICD-10-PCS; principal; 2019-08-22)
DX: D70.1 Agranulocytosis secondary to cancer chemotherapy (principal); I48.20 Chronic atrial fibrillation, unspecified; C91.50 Adult T-cell lymphoma/leukemia (HTLV-1-associated) not having achieved remission; R65.10 Systemic inflammatory response syndrome (SIRS) of non-infectious origin without acute organ dysfunction; T45.1X5A Adverse effect of antineoplastic and immunosuppressive drugs, initial encounter; R50.81 Fever presenting with conditions classified elsewhere; I25.10 Atherosclerotic heart disease of native coronary artery without angina pectoris; G47.30 Sleep apnea, unspecified; M17.0 Bilateral primary osteoarthritis of knee; M19.072 Primary osteoarthritis, left ankle and foot; F41.9 Anxiety disorder, unspecified; F32.9 Major depressive disorder, single episode, unspecified; M19.071 Primary osteoarthritis, right ankle and foot; R33.9 Retention of urine, unspecified; E78.5 Hyperlipidemia, unspecified; D69.6 Thrombocytopenia, unspecified; H91.93 Unspecified hearing loss, bilateral; I10 Essential (primary) hypertension; Z95.2 Presence of prosthetic heart valve; Y92.9 Unspecified place or not applicable; Z88.8 Allergy status to other drugs, medicaments and biological substances; Z95.0 Presence of cardiac pacemaker; Z90.79 Acquired absence of other genital organ(s); Z97.4 Presence of external hearing-aid; Z85.71 Personal history of Hodgkin lymphoma; Z92.3 Personal history of irradiation; Z79.01 Long term (current) use of anticoagulants; Z79.899 Other long term (current) drug therapy; Z85.46 Personal history of malignant neoplasm of prostate; Z72.89 Other problems related to lifestyle
CPT/HCPCS: 36415; 71046; 80048; 81003; 81015; 82803; 83605; 83735; 85025; 85060; 85610; 87040; 87086; 93306; 96365; 96366; 99284; A9270-GY; J0692; J1642; J3475